=== PATIENT | female | born 1985 | race Caucasian/White ===

== ENCOUNTER 2019-02-15 16:46 | Outpatient (REF) | payer SELFPAY ==
--- NOTE | 2019-02-15 15:30 | PAPFT_PTH ---
PATIENT: Terri Merritt LOC: [facility] U#:[id number] AGE/SX: 33/F ROOM: RE02/15/[address]: Patricia Giles : 1985 BED: DIS: 02/15/2019 SPEC #: [id number] RECD: 02/16/19 12:44 STATUS: YASMINE REColton #: [id number] LEE: 02/15/19 15:[address]: Patricia Giles DEPT: [facility] Cytology RECD BY: Mireille Carver ENTERED: 02/16/19 12:45 SP TYPE: PAPFT OTHR DR: Lyle Guerrero Tissues: 1 - CX/ENDOCX FOR PAP SMEARS Procedures: PAP THIN PREP/UVM Screening HPV DNA PROBE Comments: [id number]
== END 2019-02-15 17:06 ==
LOC: NCHCN 16:46
PROVIDERS: PCP Internal Medicine; Visit Provider Nurse Practitioner Family
DX: Z12.4 Encounter for screening for malignant neoplasm of cervix (principal); Z01.419 Encounter for gynecological examination (general) (routine) without abnormal findings
CPT/HCPCS: 88142; 87624

== ENCOUNTER 2020-01-19 01:53 | Outpatient (CLI) | payer OTHER, SELFPAY ==
--- NOTE | 2020-01-19 | DI.RAD_ITS ---
EXAM: XR SHOULDER RT COMPLETE 2+V CLINICAL HISTORY: TENDINITIS RT SHOULDER, M75.81. TECHNIQUE: 2D digital imaging was performed. COMPARISON: No exams were available for comparison FINDINGS: BONES: No acute fracture is present. No bony destructive lesion is seen. JOINTS: No dislocation present. SOFT TISSUE: Normal. IMPRESSION: Unremarkable radiographs of the insert body part. DATA REPOSITORY: RADIATION DOSE DELIVERED:
== END 2020-01-19 02:13 ==
PROVIDERS: PCP Internal Medicine; Visit Provider Nurse Practitioner Family
DX: M75.81 Other shoulder lesions, right shoulder (principal)
CPT/HCPCS: 73030

== ENCOUNTER 2020-04-11 02:33 | Outpatient (CLI) | payer OTHER, SELFPAY ==
[2020-04-12 12:45] LABS: COVID-19 RT-PCR UVMMC Result Negative (Negative)
== END 2020-04-11 02:34 | disposition home or self-care (01) ==
LOC: LBO 02:33
PROVIDERS: PCP Nurse Practitioner Family; Visit Provider Student in an Organized Health Care Education/Training Program
DX: Z11.52 Encounter for screening for COVID-19 (principal); Z01.818 Encounter for other preprocedural examination
CPT/HCPCS: U0003

== ENCOUNTER 2020-04-14 06:05 | Day surgery (SDC) | payer OTHER, SELFPAY ==
[2020-04-14] VITALS (7 sets, daily range): BP systolic 89–99; BP diastolic 43–60; PULSE 71–108; RESP 16–20; TEMP 36.1–36.6; O2SAT 97–100
[2020-04-14] MEDS: Lactated Ringers 1,000 ML 100 ML IV (06:57)
--- NOTE | 2020-04-14 07:12 | W.PM.DSUDISC ---
Discharge Plan Disposition Patient Disposition: HOME Condition: Stable Discharge Details Reason For Visit: Right shoulder surgery Attending Provider: Jaylon Porter Primary Care Provider: Patricia Giles Home Meds and New Rx's Prescriptions: New naproxen 250 mg tablet 250 - 500 mg PO BID PRN (Reason: Moderate pain or swelling) Qty: 60 RF: 0 aspirin 81 mg tablet,delayed release (DR/EC) 81 mg PO DAILY 14 Days Qty: 14 RF: 0 oxycodone 5 mg tablet 5 - 10 mg PO Q4H PRN (Reason: moderate to severe pain) Qty: 16 RF: 0 Continued lorazepam 1 MG tablet 0.5 mg PO TID PRN PRN (Reason: Anxiety) RF: 0 diphenhydramine-acetaminophen [Tylenol PM Extra Strength] 25-500 mg Tablet 1 tab PO QHS PRNRF: 0 Discontinued metronidazole [Metrogel Vaginal] 70 GM gel 70 gm VG BID Qty: 1 RF: 0 ibuprofen 200 mg Tablet 200 mg PO Q6H PRNRF: 0 Discharge Instructions Additional Instructions: Surgery: Shoulder arthroscopy with extensive debridement, subacromial decompression, and mini open biceps tenodesis Activity: You should gradually increase range of motion motion and use of your shoulder. Please perform daily stretching exercises. You may use your shoulder for all regular activities. Avoid heavy lifting, reaching overhead, and lifting away from body for approximately 6 to 8 weeks. You may use the sling whenever you are out of the house for a few weeks. At home it is best to remove the sling and rest the arm on a pillow at your side or support the operative side with your other hand. You may allow the arm to dangle at your side. A physical therapy prescription will be sent electronically to start in 1-2 weeks. Avoid biceps strengthening for 1 month and no eccentric strengthening for 2 months. Prescriptions: Aspirin 81 mg take 1 daily to prevent a blood clot for 2 weeks Naproxen 250 mg take 1-2 every 12 hours with a meal as needed for moderate pain Oxycodone 5 mg take 1-2 every 4-6 hours as needed for severe pain You may use dhgk-kmo-szdxjhz Tylenol (acetaminophen) as needed for mild pain. These pain medications may be taken all at once or in different combinations as needed. Also, recommend Colace (docusate) as a stool softener as surgery and pain medicine cause constipation. Dressings: Remove shoulder bandage after 3 days. Leave the sticky Steri-Strips in place until they fall off or remove them after you shower. Cover the incisions with Band-Aids or leave them open to air. The biceps bandage (inside upper arm) is glued on separately. You may leave this one on a few days longer if it is difficult to remove. There is also glue underneath this bandage that can be left in place until it peels off. You may shower after 5 days. Follow-up: 10-[address] Porter (9:30 AM on 04/26) You may take off the leg compression stockings this evening at home. You may also leave them on a few days longer if you have a history of leg swelling or edema. Let us know right away if you develop any redness, drainage, fevers, chest pain, or trouble breathing. Do not drink alcohol or drive for at least 24 hours after anesthesia. Please call the office during business hours with any questions or concerns. Referrals: Jaylon Porter MD [ [facility] STAFF PHYSICIAN] - Discharge Orders Discharge Orders: Discharge Order (Routine); Ordered 04/14/20 Ordered By: Jaylon Porter DS: Diagnosis Discharge Diagnosis (1) Bursitis of right shoulder: Status: Acute (2) Superior labrum urwkklqm-bu-vgsjjtbjw (SLAP) tear of right shoulder: Status: Suspected (3) Biceps tendinitis of right shoulder: Status: Acute
[2020-04-14] MEDS: ceFAZolin 2 GM/50 ML BAG IVPB (07:36)
[2020-04-14] MEDS: EPINEPHrine 30 MG/30 ML VIAL (09:25)
[2020-04-14] MEDS: Bupivacaine 0.25% Pres-Free 30 ML VIAL (09:25)
--- NOTE | 2020-04-14 10:18 | W.PM.OP ---
Date of service: 04/14/20 Time of Service: 08:00 Operative Note Operative Note DATE OF PROCEDURE: 04/14/20 PRE-OP DIAGNOSIS: Right: 1. SLAP tear 2. LHB tendinopathy 3. Bursitis POST-OP DIAGNOSIS: same PROCEDURE: Right: 1. Open biceps tenodesis, CPT# 03565. This involved reattaching the long head of the biceps tendon to the proximal humerus in the sub-pectoral area of the bicipital groove at the correct tension. 2. Extensive debridement, CPT# 89404. This involved using arthroscopic hand instruments, power instruments, and radiofrequency instruments to release to release the long head of the biceps tendon and debride areas of labral tearing, rotator cuff fraying, synovitis, and chondromalacia about the biceps groove within the glenohumeral joint anteriorly, superiorly and posteriorly. 3. Subacromial decompression with partial acromioplasty, CPT# 02687. This involved using arthroscopic power instruments and a radiofrequency wand to complete a bursectomy and remove bone spurs on the undersurface of the acromion. The assistant editor was medically required in order to help assist in techniques above, which require positioning the arm, holding the arthroscope, and manipulating multiple instruments and sutures at the same time. This cannot be done without the help of an experienced assistant editor. SURGEON: Jaylon Porter SWIMMING POOL PLASTERER HELPER: Chris Dorsey ANESTHESIA: GETA, regional and local ESTIMATED BLOOD LOSS: 5 PATHOLOGY: none sent TOURNIQUET TIME: 0 COMPLICATIONS: None Patient was transported to: PACU Patient's condition: stable Implants: Arthrex: FiberTak 2.6 mm all-suture Button Implant Indications: The patient was diagnosed with the above conditions and appropriately indicated for surgical intervention. Please see complete medical record for details. Findings: Exam under anesthesia: Full, symmetrical range of motion without instability Glenohumeral joint: Type II SLAP tear involving the biceps anchor with moderate adjacent synovitis. No propagation of labral tear anteriorly or posteriorly inferiorly. 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 Moderate anterior synovitis and chondromalacia about the bicipital groove. Significant long head of the biceps tendon injection intra-articularly and traveling down the bicipital groove. Mild subscapularis superior margin fraying. Intact articular sided supraspinatus and infraspinatus rotator cuff. Intact articular cartilage. Subacromial space: Moderate bursitis and mild undersurface acromial bone spurring. Intact bursal rotator cuff. Procedure Description: In the operating room, general anesthesia was induced. Bilateral shoulders were examined. The patient was positioned in the beachchair position. All bony prominences were well-padded. Preoperative antibiotics were administered. The shoulder was prepped and draped in the usual sterile fashion. The correct patient, procedure, and side of the procedure were all verified prior to incision. Starting through the posterior portal a standard complete diagnostic arthroscopy was performed of the glenohumeral joint including inspection of the long head of the biceps, anterior and superior labrum, subscapularis tendon, supraspinatus and infraspinatus tendons, and axillary recess. The glenoid and humeral head cartilage as well as the posterior labrum were inspected from an anterior viewing portal. Significant findings and interventions noted above. The biceps tendon was released from the superior labrum using arthroscopic scissors. The glenohumeral joint was drained of arthroscopic fluid. Starting through the posterior portal, the arthroscope was directed into the subacromial space. A lateral 50 yard line lateral portal was created. A combination of power instruments and a radiofrequency ablator were used to debride bursitis anteriorly, posteriorly, and laterally as well as expose and smooth bone spurring on the undersurface of the acromion. The coracoacromial ligament was preserved. The bursectomy was completed viewing laterally and working from posteriorly and the rotator cuff was thoroughly inspected with findings noted above. The subacromial space was drained of arthroscopic fluid. 20 cc of 0.25% bupivacaine with epinephrine was infiltrated about a 2 to 3 cm longitudinal incision at the inferior margin of the pectoralis major localized over the long head of the biceps tendon. Blunt and sharp dissection were used to expose the tendon in the bicipital groove. The tendon was brought out of the wound and kept off the skin on top of lap. Using a fiber loop suture the tendon was prepped from the musculotendinous junction a few centimeters proximal. The excess tendon was amputated. The correct location for sub-pectoral fixation was localized, prepped with a rasp, and then drilled with a 2.6 mm drill pin in a unicortical fashion through the guide. The FiberTak button implant was inserted through the guide, deployed, and tested. The free FiberLoop suture ends were then passed through the implant using the preloaded FiberLoop shuttling sutures. The sutures were tensioned bringing the tendon down to bone. Tension and fixation were then tested and found to be appropriate. A free needle was used to pass suture through the tendon and the free ends of the suture were were tied compressing tendon to bone. The wound was copiously irrigated with normal saline. Subcutaneous tissue was closed using 3-0 Monocryl in a buried interrupted fashion. Skin was closed using 3-0 Monocryl in a buried subcuticular running fashion. Skin glue was applied over the incision. Mastisol was applied about the incision. The incision was covered with Telfa, gauze, and covered with a Tegaderm dressing. The shoulder was drained of arthroscopic fluid. All portal sites were copiously irrigated. These incisions were closed using 3-0 Monocryl in a buried fashion, covered with Mastisol, Steri-Strips, Xeroform, dry gauze, and ABDs. The dressings were covered and secured with Medipore tape. The operative extremity was placed into a sling for immobilization. The patient awoke from anesthesia without complication and was transferred to the recovery room in a stable condition.
== END 2020-04-14 11:24 | disposition home or self-care (01) ==
PROVIDERS: PCP Nurse Practitioner Family; Visit Provider Student in an Organized Health Care Education/Training Program
PROC: (CPT 29805; principal; 2020-04-14 07:30)
DX: S43.431A Superior glenoid labrum lesion of right shoulder, initial encounter (principal); M75.51 Bursitis of right shoulder; M75.21 Bicipital tendinitis, right shoulder; X58.XXXA Exposure to other specified factors, initial encounter; M65.811 Other synovitis and tenosynovitis, right shoulder; M94.211 Chondromalacia, right shoulder
CPT/HCPCS: 23430; 29823; 29826; 76942; 81025; J0131; J0690; J1100; J1885; J2001; J2250; J2405

== ENCOUNTER 2023-06-10 15:56 | Outpatient (REF) | payer BC, SELFPAY ==
[2023-06-10 18:44] LABS: HCT 42.9 % (36.0-46.0); HGB 14.7 g/dL (11.2-15.7); MCH 30.1 pg (27.0-33.0); MCHC 34.3 % (32.0-36.0); MCV 88 fL (80-95); MPV 9.8 fL (8.0-11.0); Platelet Count 289 10^3/uL (130-400); RBC 4.88 10^6/uL (3.93-5.22); RDW 13.2 % (11.7-14.6); RDW-SD 42.7 fL
[2023-06-10 19:07] LABS: ALT 33 U/L (14-59); AST 18 U/L (15-37); Albumin 3.8 g/dL (3.4-5.0); Alkaline Phosphatase 49 U/L (46-116); Anion Gap 9.3 mmol/L (3-11); BUN 18 mg/dL (7-18); Bilirubin, Total 0.2 mg/dL (0.2-1.0); CO2 28.7 mmol/L (21.0-32.0); CREATININE 0.8 mg/dL (0.55-1.02); Calcium 8.7 mg/dL (8.5-10.1); Chloride 105 mmol/L (98-107); Estimated GFR 97.87 (mL/min/1.73m2); Glucose 90 mg/dL (74-106); Sodium 143 mmol/L (136-145); TSH (W/Ref FT4) 1.09 uIU/mL (0.36-3.74); Total Protein 6.9 g/dL (6.4-8.2)
[2023-06-10 19:19] LABS: Vitamin D 25 Total 29.9 ng/mL (30-100)
== END 2023-06-10 15:57 | disposition home or self-care (01) ==
LOC: NCHCN 15:56
PROVIDERS: PCP Nurse Practitioner Family; Visit Provider Physician Assistant
DX: F41.8 Other specified anxiety disorders (principal); E55.9 Vitamin D deficiency, unspecified
CPT/HCPCS: 80053; 82306; 85027; 84443

== ENCOUNTER 2024-03-05 17:11 | Outpatient (REF) | payer BC, SELFPAY ==
--- OUTSIDE RECORDS SUMMARY | 2024-03-05 17:13 | XMS_ITS | Encounter Summary ---
Author Organization [facility] Address [address] [place] [address] Care Team Providers Care Basket Hand Braider Name Role Phone Unknown, Provider Primary Care Provider Unava ilable Encounter Details Date Type Department Care Team (Late st Contact Info) Description 06/22/2012 Results Only [facility] - [facility] ([facility] [address] [place] [address] [phone] Barby Flood, JUANITA Social History Tobacco Use Types Packs/Day Years Used Date Smoking Tobacco: Never Assessed Comments Unknown Sex and Gender Information Value Date Recorded Sex Assigned at Not on file Legal Sex Female 18:37 EST Gender Identity Not on file Sexual Orientation Not on file documented as of this encounter Plan of Treatment Not on file documented as of this encounter Procedures Procedure Name Priority Date/Time Associated Diagnosis Comments PAP TEST- RESULT ONLY Routine 06/22/2012 0:00 EDT documented in this encounter Results * PAP TEST- RESULT ONLY (06/22/2012 0:00 EDT) Pathology Report: CYTOPATHOLOGY REPORT Reports generated via electronic interface contain original data; however they are lacking the format of the original report. Caution should be taken when reading/interpreti ng unformatted reports. Name: ? MARILEE FERRARO ? Accession #: ? [id number] : ? 1985 (Age: 27) ??F ?Collect Date: ? 06/22/2012 Location: ? [facility] ? Receive Date: ? 06/23/2012 Provider: ?BARBY FLOOD ASSISTANT MEDIA PLANNER Copy to: ?MARCUS BAUER ? Specimen/Source: ?Pap Test, Cervix/Endocervix, ThinPrep Imaging System with manual evaluation Last Menstrual Period: ? Hormonal/Contracep tive Status: ? Intrauterine device: mirena Previous Gynecologic Pathology: ? EDMOND I+II: Phx ? , paps normal since Infection History: ? Bacterial vaginosis ? SPECIMEN ADEQUACY ? Satisfactory for Evaluation - transformation zone component present - scant squamous epithelial component secondary to excessive inflammation GENERAL CATEGORIZATION ? Negative for Intraepithelial Lesion or Malignancy INTERPRETATION ? Reactive cellular changes associated with inflammation present (includes repair). Shift in susan present suggestive of bacterial vaginosis. ? Document reviewed and electronically signed by: ? CHELY PANCHAL MD ? Report Date: ??06/26/2012 11:54 End of Report [facility] 06/22/2012 06/23/2012 us Barby Flodo NP PATHOLOGY ORDERABLES Final Re sult [facility] [address] [place] [address] documented in this encounter Visit Diagnoses Not on filedocumented in this encounter Care Teams Basket Hand Braider Relationship Specialty Start Date End Date Unknown, Provider, PCP - General 05/01/10 documented as of this encounter
--- OUTSIDE RECORDS SUMMARY | 2024-03-05 17:13 | XMS_ITS | Encounter Summary ---
Author Organization [facility] Address [address] [place] [address] Care Team Providers Care Market Investigator Name Role Phone Unknown, Provider Primary Care Provider Unava ilable Encounter Details Date Type Department Care Team (Late st Contact Info) Description 04/11/2020 Lab Requisition [facility] Pathology & Laboratory Medicine - [facility] [address] [place] [address] Outr Resulting Lab, Provider Social History Tobacco Use Types Packs/Day Years Used Date Smoking Tobacco: Never Assessed Interpersonal Safety Answer Date Record ed Physically Hurt Never 10/10/2019 Verbally Threaten Not on file 10/10/2019 Comments Unknown Sex and Gender Information Value Date Recorded Sex Assigned at Not on file Legal Sex Female 18:37 EST Gender Identity Not on file Sexual Orientation Not on file documented as of this encounter Plan of Treatment Not on file documented as of this encounter Procedures Procedure Name Priority Date/Time Associated Diagnosis Comments ZZCOVID-19 TEST [facility] PCR Today 04/11/2020 11:10 EST COVID-19 TESTING Routine 04/11/2020 11:1 0 EST documented in this encounter Results * COVID-19 TEST [facility] PCR (04/11/2020 11:10 EST) Swab ENTIRE NASOPHARYNX / Unknown 04/11/2020 11:10 EST 04/11/2020 15:44 EST us Provider Outr Resulting Lab MICROBIOLOGY - GENER AL ORDERABLES Final Result [facility] [address] [place] [address] * COVID-19 TESTING (04/11/2020 11:10 EST) COVID-19 rt-PCR Result Negative Negative 04/12/2020 12:38 EST [facility] Comment: This test has not been FDA cleared or approved. This test has been authorized by FDA under an EUA for use by authorized laboratories. This test has been authorized only for detection of nucleic acid from 2019-nCoV, not for any other viruses or pathogens. This test is only authorized for the duration of the declaration that circumstances exist justifying the authorization of emergency use of in vitro diagnostic tests for detection and/or diagnosis of 2019-nCoV under section 564(b)(1) of Act, 21 U.S.C ?? 360bbb-3(b) (1), unless the authorization is terminated or revoked sooner. Negative results do not preclude 2019-nCoV infection and should not be used as the sole basis for treatment or other patient management decisions. Negative results must be combined with clinical observations, patient history, and epidemiological information. Testing was performed using the clarence SARS-CoV-2 assay ([employer] on the Clarence [address]00 System Performing Lab [facility] [address] [facility] Lab 04/12/2020 12:38 EST [facility] Swab 04/11/2020 11:1 0 EST 04/11/2020 15:44 EST us Provider Outr Resulting Lab MICROBIOLOGY - GENER AL ORDERABLES Final Result [facility] [address] [place] [address] documented in this encounter Visit Diagnoses Not on filedocumented in this encounter Care Teams Market Investigator Relationship Specialty Start Date End Date Unknown, Provider, PCP - General 05/01/10 documented as of this encounter
--- OUTSIDE RECORDS SUMMARY | 2024-03-05 17:13 | XMS_ITS | Encounter Summary ---
Author Organization [facility] [place] [address] Care Team Providers Care Dynamometer Mechanic Name Role Phone Susie Chaevz SLUBBER MACHINE OPERATOR Primary Care Provider [phone] Encounter Details Date Type Department Care Team (Late st Contact Info) Description 04/30/2016 Telephone Obstetrics and Gynecology at [facility] [place] [id number] Jamal Olson MD Social History Tobacco Use Types Packs/Day Years Used Date Smoking Tobacco: Former Cigarettes Q uit: 04/10/2016 Smokeless Tobacco: Never Sex and Gender Information Value Date Recorded Sex Assigned at Not on file Gender Identity Not on file Sexual Orientation Not on file documented as of this encounter Miscellaneous Notes * Telephone Encounter - Denice Black - 05/03/2016 8:43 AM EST LEFT pt message, ok to cancel preop scheduled as Dr. Olson will do it the morning of. * Telephone Encounter - Denice Black - 05/02/2016 8:09 AM EST Patient is scheduled for surgery with Dr. Olson for 05/28. Will send patient surgery packet * Telephone Encounter - Denice Black - 05/02/2016 7:33 AM EST Pt returned my call; I called patient and left another voicemail * Telephone Encounter - Denice Black - 04/30/2016 4:16 PM EST Terri returned my call 04/30/16 regarding setting up surgery. I left her a voicemail with potential dates of 05/28 or 06/04. Will await her call to schedule. documented in this encounter Plan of Treatment Not on file documented as of this encounter Visit Diagnoses Not on filedocumented in this encounter Care Teams Dynamometer Mechanic Relationship Specialty Start Date End Date Susie Chavez, SOPHIA PCP - General Family Medicine 04/03/16 documented as of this encounter
--- OUTSIDE RECORDS SUMMARY | 2024-03-05 17:13 | XMS_ITS | Encounter Summary ---
Author Organization [facility] Address [facility] [place] [address] Care Team Providers Care Whey Department Operator Name Role Phone Susie Chavez APRN Primary Care Provider [phone] Encounter Details Date Type Department Care Team (Latest Contact Info) Description 03/09/2020 12:55 PM EST - 03/09/2020 11:59 PM EST Hospital Encounter XRay at [address] [place] [address] Jaylon Porter MD [address] [place] [address] Biceps tendinitis of right upper extremity; Superior glenoid labrum lesion of shoulder, unspecified laterality, sequela Discharge Disposition: Home Social History Tobacco Use Types Packs/Day Years Used Date Smoking Tobacco: Former Cigarettes Q uit: 04/10/2016 Smokeless Tobacco: Never Alcohol Use Standard Drinks/Week Comments Yes 0 (1 standard drink = 0.6 oz pur e alcohol) once every 2 weeks Sex and Gender Information Value Date Recorded Sex Assigned at Not on file Gender Identity Not on file Sexual Orientation Not on file documented as of this encounter Discharge Instructions * Patient Instructions* Mely Rodriguez - 03/09/2020 1:06 PM EST Post Injection Patient Instructions You received an injection by Dr. Capone in the diagnostic section of radiology. Procedure: Right Shoulder Arthrogram In the days following the injection: ??? Low intensity movement and exercise of the affected joint. ??? Avoid movements that worsen pain. During the first 48 hours following the injection you may experience mild discomfort at the injection site. If you experience pain or discomfort in the affected area, do the following: ??? Apply cold compress to the affected area. ??? If allowed by your physician, take an anti-inflammatory medication such as ibuprofen (example: Advil), Acetaminophen 9example: Tylenol) or Aspirin. IMPORTANT The risk of infection exists whenever the skin is punctured. The risk can be minimized by keeping the injection site clean. However, be aware of the following signs of an infection: ??? Redness and swelling at the injection site. ??? Increased pain. ??? Fever and/or chills. ??? Decreased range of motion in the joint near the injection site. If you experience any of the signs of infection listed above, telephone the diagnostic section of radiology at [phone]. documented in this encounter Medications at Time of Discharge Medication Sig Dispensed Refills Start Date End Date oxyCODONE (ROXICODONE) 5 mg Tablet Take 1 tablet by mouth every 4 hours as needed for Pain. 10 tablet 05/28/2016 ibuprofen (ADVIL;MOTRIN) 600 mg Tablet Take 1 tablet by mouth every 6 hours as needed for Pain. 60 tablet 05/28/2016 LORazepam (ATIVAN) 0.5 mg Tablet Take 0.5 mg by mouth every 6 hours as needed for Anxiety. documented as of this encounter Plan of Treatment Not on file documented as of this encounter Procedures Procedure Name Priority Date/Time Associated Diagnosis Comments XR FLUORO ARTHROGRAM INJECTION SHOULDER RIGHT Routine 03/09/2020 1:38 PM EST Biceps tendinitis of right upper extremity Superior glenoid labrum lesion of shoulder, unspecified laterality, sequela documented in this encounter Results * XR Fluoro Arthrogram Injection Shoulder Right (03/09/2020 1:38 PM EST) Anatomical Region Laterality Modality Shoulder Right Radio Fluoroscop y Impressions 03/09/2020 1:45 PM EST Uneventful arthrogram Resident/Fellow: None Attending: There was no attending present for this procedure Procedure performed by Ema Capone APRN Thank you for letting us participate in the care of this patient. For questions regarding this report, please contact the number below. ? Narrative 03/09/2020 1:45 PM EST HISTORY: ??BICEP TENDONITIS, SLAP TEAR, ORDER IN SCANNED DOCS, MR arthrogram of right shoulder joint space. Arthrogram For Injection Of Contrast TECHNIQUE: After an extensive conversation with the patient regarding risks and benefits, oral and written consent were obtained.? A pre- procedural time-out was performed, including review of the patient's relevant electronic medical record and allergies, as per [facility] [place]. The patient was positioned supine on the fluoroscopic table. ??The skin overlying the right anterior shoulder was prepped and draped in the usual aseptic manner. 1% Lidocaine was used to achieve local anesthesia. ??Under fluoroscopic guidance, a 22 gauge 3.5 inch spinal needle was advanced into the joint space. ??After confirmation of intra-articular location of needle tip by using a small injection of the contrast mixture, a total of 10 ml of the contrast mixture was injected. All needles removed at end of procedure. FINDINGS: 1. Contrast in right shoulder joint space 2. Additional post-contrast injection images were obtained in different projections. MEDICATIONS: Lidocaine 1% - <5 ml, for subcutaneous anesthesia CONTRAST: 20cc mixture of the following: Dotarem- 0.2 ml in Normal Saline - 10ml Omnipaque 300-Utilized: 5 mL 1% Lidocaine - 5ml Only 10 ml of this mixture injected into joint space. FLUORO TIME: 1.23 minutes COMPLICATIONS: ??None immediate. POST-PROCEDURE CARE: Instructions regarding monitor of infection and management of post-procedural pain were reviewed with the patient. Procedure Note Ema Capone APRN - 03/09/2020 HISTORY: BICEP TENDONITIS, SLAP TEAR, ORDER IN SCANNED DOCS, MRarthrogram of right shoulder joint space. Arthrogram For Injection Of Contrast TECHNIQUE: After an extensive conversation with the patient regarding risks andbenefits, oral and written consent were obtained.? A pre- procedural time-out was performed, including review of the patient's relevant electronic medicalrecord and allergies, as per [facility] [place]. The patient was positioned supine on the fluoroscopic table. The skinoverlying the right anterior shoulder was prepped and draped in the usual asepticmanner. 1% Lidocaine was used to achieve local anesthesia. Under fluoroscopicguidance, a 22 gauge 3.5 inch spinal needle was advanced into the joint space.After confirmation of intra-articular location of needle tip by using a small injection of the contrast mixture, a total of 10 ml of the contrastmixture was injected. All needles removed at end of procedure. FINDINGS: 1. Contrast in right shoulder joint space 2. Additional post-contrast injection images were obtained in different projections. MEDICATIONS: Lidocaine 1% - <5 ml, for subcutaneous anesthesia CONTRAST: 20cc mixture of the following: Dotarem- 0.2 ml in Normal Saline - 10ml Omnipaque 300-Utilized: 5 mL 1% Lidocaine - 5ml Only 10 ml of this mixture injected into joint space. FLUORO TIME: 1.23 minutes COMPLICATIONS: None immediate. POST-PROCEDURE CARE: Instructions regarding monitor of infection andmanagement of post-procedural pain were reviewed with the patient. IMPRESSION Uneventful arthrogram Resident/Fellow: None Attending: There was no attending present for this procedure Procedure performed by Ema Capone APRN Thank you for letting us participate in the care of this patient. Forquestions regarding this report, please contact the number below. Jaylon Porter MD IMG FLUORO ORDERABLE S documented in this encounter Visit Diagnoses Diagnosis Biceps tendinitis of right upper extremity Superior glenoid labrum lesion of shoulder, unspecified laterality, sequela documented in this encounter Administered Medications Inactive Administered Medications - up to 3 most recent administrations Medication Order MAR Action Action Date Dose Rate Site gadoterate meglumine (Dotarem) (0.5 mMol/mL) injection solution 0.2 mL/kg/dose 0.2 mL/kg/dose, Intra-articular, ONCE, 1 dose, On Aye 03/09/20 at 1345, Routine Given 03/09/2020 1:45 PM EST 0.2 mLs iohexoL (Omnipaque) (300 mg/mL) injection solution 10 mL 10 mL, Intra-articular, ONCE, 1 dose, On Aye 03/09/20 at 1345, Warning Vesicant/Irritant Medication , Routine Given 03/09/2020 1:20 PM EST 10 mLs lidocaine (Xylocaine) 1% (10 mg/mL) injection 200 mg 200 mg (20 mL), Subcutaneous, ONCE, 1 dose, On Aye 03/09/20 at 1345, Routine Given 03/09/2020 1:37 PM EST 10 mLs documented in this encounter Care Teams Whey Department Operator Relationship Specialty Start Date End Date Susie Chavez APRN PCP - General Family Medicine 04/03/16 documented as of this encounter
--- OUTSIDE RECORDS SUMMARY | 2024-03-05 17:13 | XMS_ITS | Encounter Summary ---
Author Organization [facility] [place] [address] Care Team Providers Care Accounts Payable Technician Name Role Phone Susie Chavez APRN Primary Care Provider [phone] Encounter Details Date Type Department Care Team (Late st Contact Info) Description 05/28/2016 11:18 AM EDT Anesthesia Event [place] [id number] Kiki Salas MD Anesthesia Record Procedure Summary Procedure Name Responsible Anesthesiologist Anesthesia Start Time Anesthesia Stop Time MARSUPIALIZATION,BA RTHOLIN'S GLAND CYST (WRVU 2.89) (Perineum) Kiki Salas MD 05/28/16 1118 05/28/16 1225 Events Date Time Event Comment 05/28/2016 0854 1118 AN Verify 1118 Start 1118 An Start Data 1127 An Induction 1129 An Intubation 1131 Anesthesia Ready 1219 Extubation/LMA Out 1221 an stop data 1223 Recovery or ICU Handoff Beth ent care was transferred to the destination unit staff after review of the patient's medical history, current anesthetic/surgical status and plan, according to the Provider Handoff Checklist. 1225 Stop Meds Name Total Midazolam 4 mg IV Lidocaine 60 mg Propofol 300 mg Ondansetron 8 mg Dexamethasone 8 mg ceFAZolin (ANCEF) 2g in dextrose 5% 100 mL 2 g Propofol INF 480 mg Ketorolac 15 mg lactated ringers infusion 1,000 mL 500 m L * Agents Name O2 Air N2O Sevoflurane (et) * Blood No blood administrations on file. Lines, Drains, and Airways Type Details Placement Removal Incision 05/28/16; perineum; 11/05/21 (LDA cleanup utility RA#[id number]); 1715 (LDA cleanup utility RA#[id number]) 05/28/16 0000 by Jocelyne Akhtar RN 11/05/21 1715 by Codie Diallo (RETIRED) Peripheral IV Line - Single Lumen 05/28/16; 0852; metacarpal vein (top of hand), right; [id number] catheter system; 18 gauge, 1 in length; Randall Herrera RN; distraction, intradermal injection, appears comfortable, tolerated well, age-appropriate response; 1 (left hand); catheter/device intact, no longer indicated, removed per policy/procedure; 05/28/16; 1353 05/28/16 0852 by Miracle Herrera RN 05/28/16 1353 by Ashli Hardy RN Supraglottic LMA Type: iGel; LMA Size: 4; Inserted by: JACKIE Park; Removal Date: 05/28/16; Removal Time: 1219 05/28/16 1129 by Delta Park CRNA 05/28/16 1219 by Delta Park CRNA documented in this encounter Social History Tobacco Use Types Packs/Day Years [...] on file documented as of this encounter OR Notes * Anesthesia Postprocedure Evaluation - Kiki Salas MD - 05/28/2016 1:33 PM EDT [facility] Department of Anesthesiology Post-procedure Note Patient: Terri Blanco Procedure Summary Date Anesthesia Start Anesthesia Stop Room / Location 05/28/16 1118 1225 [facility] OR 26 / [facility] MAIN OR Procedure Diagnosis Surgeon Responsible Provider MARSUPIALIZATION,BARTHOLIN'S GLAND CYST (WRVU 2.89) (N/A Perineum) (recurrent bartholin cyst) Jamal Olson MD Fillinger, Mary P, MD All Anesthesia Providers: Anesthesiologist: Kiki Salas MD FULL STACK NET DEVELOPER: Delta Park CRNA Last (1hr) Vitals: BP 99/70 (05/28/16 1300) Temp Pulse Resp 16 (05/28/16 1300) SpO2 97 % (05/28/16 1300) Patient Location: PACU/[facility] Level of Consciousness: Awake and Alert Pain Management: Satisfactory Analgesia PONV: None Cardiovascular Status: Hemodynamically Stable Respiratory Status: Room Air Postoperative Fluid Status: Intravascular EUvolemia Possible Anesthetic Complications: NONE apparent at time of evaluation Final Primary Anesthesia Type: General (The anesthetic type performed was the same as planned.) Comments: * Anesthesia Preprocedure Evaluation - Kiki Salas MD - 05/28/2016 8:38 AM EDT Pre-Anesthesia Evaluation for: Terri Blanco a 31 y.o. female. Procedure(s): MARSUPIALIZATION,BARTHOLIN'S GLAND CYST (WRVU 2.89) Patient Active Problem List Diagnosis ??? Cyst of left Bartholin's gland duct Lanced x 5 for abscess Past Medical History: Diagnosis Date ??? Abscess of Bartholin's gland ??? Anxiety ??? History of chlamydia Past Surgical History: Procedure Laterality Date ??? CYST INCISION AND DRAINAGE Left 2010 AND 2013 BARTHOLIN ??? KNEE ARTHROSCOPY Right Social History Substance Use Topics ??? Smoking status: Former Smoker Types: Cigarettes Quit date: 04/10/2016 ??? Smokeless tobacco: Never Used ??? Alcohol use Yes Comment: once every 2 weeks History Drug Use No No Known Allergies Medications: MAR and/or home medications have been reviewed. Physical Exam: Vitals: 05/28/16 0828 BP: 109/62 Pulse: 64 Resp: 16 Temp: 36.3 ??C (97.3 ??F) Body mass index is 31.12 kg/(m^2). Height: 165.1 cm (5' 5) Weight - Scale: 84.8 kg (187 lb) Airway Assessment: Mallampati: II TM distance: >3 FB Neck ROM: full Cardiovascular Assessment: Rhythm: regular Rate: normal Pulmonary Assessment: Dental Assessment: Comment: None loose. Misc Assessment: Anesthesia Plan: ASA 2 general, Former cigarette smoking 31 y/o female with hx anxiety on lorazepam presents with recurrent left bartholin cyst for marsupialization. Negative UPT. Denies CP, SOB. Good functional capacity. Denies cardiac, pulmonary, hepatic, renal disease. Denies GERD. Denies problems with anesthesia, self or family. Plan GA + LMA. Risks (including, but not limited to, awareness, nerve damage, damage to the major organs, ) benefits, alternatives discussed. Questions solicited and answered. Consent obtained. Region - Other Informed Consent: Anesthetic plan and risks discussed with patient. Plan discussed with FULL STACK NET DEVELOPER. [facility] Staff Note documented in this encounter Plan of Treatment Not on file documented as of this encounter Visit Diagnoses Not on filedocumented in this encounter Administered Medications Inactive Administered Medications - up to 3 most recent administrations Medication Order MAR Action Action Date Dose Rate Site ceFAZolin (ANCEF) 2g in dextrose 5% 100 mL 2 g, Intravenous, ONCE, 1 dose, On Fri05/28/16 at 0915, Administer over 30 Minutes, Give 30 minutes pre-op, Indication for (Active or Suspected): Prophylaxis Given 05/28/2016 11:32 AM EDT 2 g dexamethasone (DECADRON) injection PRN, Starting on Fri05/28/16 at 1134, Until Fri05/28/16 at 1230, Anesthesia Intra-op, Routine Given 05/28/2016 11:34 AM EDT 8 mg ketorolac (TORADOL) injection PRN, Starting on Fri05/28/16 at 1214, Until Fri05/28/16 at 1230, Pain, Anesthesia Intra-op, Routine Given 05/28/2016 12:14 PM EDT 15 mg lidocaine (PF) (XYLOCAINE) 100 mg/5 mL (2 %) injection PRN, Starting on Fri05/28/16 at 1126, Until Fri05/28/16 at 1230, Anesthesia Intra-op, Routine Given 05/28/2016 11:26 AM EDT 60 mg midazolam (PF) (VERSED) 1 mg/mL multi-dose injection PRN, Starting on Fri05/28/16 at 1118, Until Fri05/28/16 at 1230, Sleep, Anesthesia Intra-op, Routine Given 05/28/2016 11:20 AM EDT 1 mg Given 05/28/2016 11:18 AM EDT 3 mg ondansetron (ZOFRAN) injection PRN, Starting on Fri05/28/16 at 1158, Until Fri05/28/16 at 1230, Nausea, Anesthesia Intra-op, Routine Given 05/28/2016 11:58 AM EDT 8 mg propofol (DIPRIVAN) 10 mg/mL bolus injection (Anesthesia) PRN, Starting on Fri05/28/16 at 1127, Until Fri05/28/16 at 1230, Anesthesia Intra-op Given 05/28/2016 11:29 AM EDT 50 mg Given 05/28/2016 11:28 AM EDT 50 mg Given 05/28/2016 11:27 AM EDT 200 mg propofol (DIPRIVAN) infusion CONTINUOUS PRN, Starting on Fri05/28/16 at 1133, Until Fri05/28/16 at 1230, Anesthesia Intra-op, Routine New Bag 05/28/2016 11:33 AM EDT 150 mcg/kg/min 72 mL/hr documented in this encounter Care Teams Accounts Payable Technician Relationship Specialty Start Date End Date Susie Chavez, FRONT OFFICE SECRETARY PCP - General Family Medicine 04/03/16 documented as of this encounter
--- OUTSIDE RECORDS SUMMARY | 2024-03-05 17:13 | XMS_ITS | Encounter Summary ---
Author Organization [facility] [place] [address] Care Team Providers Care Medical Physics Researcher Name Role Phone Susie Chavez APRN Primary Care Provider [phone] Encounter Details Date Type Department Care Team (Late st Contact Info) Description 05/24/2016 Orders Only Obstetrics [place] [address] Nati Murphy MD [facility] DR OBSTETRICS & [place] [address] Social History Tobacco Use Types Packs/Day Years [...] on filedocumented in this encounter Care Teams Medical Physics Researcher Relationship Specialty Start Date End Date Susie Chavez APRN PCP - General Family Medicine 04/03/16 documented as of this encounter
--- OUTSIDE RECORDS SUMMARY | 2024-03-05 17:13 | XMS_ITS | Encounter Summary ---
Author Organization [facility] [place] [address] Care Team Providers Care Nuclear Medicine Supervisor Name Role Phone Susie Chavez ETHNOLOGY PROFESSOR Primary Care Provider [phone] Encounter Details Date Type Department Care Team (Late st Contact Info) Description 05/28/2016 9:58 AM EDT - 05/28/2016 11:24 AM EDT Surgery [place] [phone] Jamal Fischer MD MARSUPIALIZATION,BRYANT CHEPE'S GLAND CYST (WRVU 2.89) Social History Tobacco Use Types Packs/Day Years [...] on file documented as of this encounter Last Filed Vital Signs Vital Sign Reading Time Taken Comments Blood Pressure 109/62 05/28/2016 8:28 AM EDT Pulse 64 05/28/2016 8:28 AM EDT Temperature 36.3 ??C (97.3 ??F) 05/28/2016 8:28 AM ED T Respiratory Rate 16 05/28/2016 8:28 AM EDT Oxygen Saturation 99% 05/28/2016 8:28 AM EDT Inhaled Oxygen Concentration - - Weight 84.8 kg (187 lb) 05/28/2016 8:28 AM EDT Height 165.1 cm (5' 5) 05/28/2016 8:28 AM EDT Body Mass Index 31.12 05/28/2016 8:28 AM EDT documented in this encounter Discharge Instructions * Discharge Instructions* Ashli Hardy RN - 05/28/2016 1:14 PM EDT POST ANESTHESIA INSTRUCTIONS Go home, rest, use caution on stairs. Change positions slowly. Do not smoke if you are alone. Diet light to regular as tolerated today. If nausea occurs start with clear liquids and progress slowly. No driving, operating machinery, alcoholic beverages and no important decisions for 24 hours. Monitor IV site for signs and symptoms of infection: increasing redness, swelling, foul drainage, if occurs contact M.D. Patients who have had endotrachial tubes (this tube, used by anesthesia department, is passed down your throat after you are asleep, to ensure safe air passage during your operation). A sore throat is normal due to the tube. Cold liquids or soothing lozenges will help ease the discomfort. The generalized muscle aches are due to the medication given to you just before the tube is inserted. As the medication wears off, you may develop muscle soreness, which usually goes away in 12-24 hours. * Patient Instructions* Bianca Washington - 05/28/2016 11:13 AM EDT Images from the original note were not included. Vulvar Surgery Patient Instructions Follow-up Appointment: 06/03/2016 11:45 AM Nati Murphy MD [employer] 5l 06/19/2016 11:45 AM (Arrive by 11:30 AM) Jamal Fischer MD Obstetrics and Gynecology [facility] Activity Restrictions and Hygeine There is a small drain stitched into the cyst. That will come out at your appointment on Friday. Noproblem if it falls out early. You should take sitz baths twice per day. You can put a few inches of water in your tub and soak in that for about 10 minutes. Rinse with the ileana-bottle after using the bathroom. Comfort Measures Most patients prefer to wear loose-fitting clothing during the healing phase. Avoid tight, occlusive pants that may chafe. Pain Medications You can take ibuprofen 600 mg and tylenol 650 mg every 6 hours. You can take oxycodone 5 mg every 4 hours as needed for pain that breaks through the tylenol and ibuprofen. Do not take oxycodone and lorazepam together. When to Call It is normal to have a [id number] amount of discharge after vulvar surgery. This can range in color from yellow to blood tinged. What is NOT normal is heaving bleeding, or discharge with foulodor, especially if it is associated with increasing pain, redness, or fever. These symptoms shouldbe reported immediately. Contact Information Dr. Jamal Fischer Gynecology [place] [phone] documented in this encounter Medications at Time [...] for Anxiety. documented as of this encounter Progress Notes * Ashli Hardy RN - 05/28/2016 1:53 PM EDT Patient alert and oriented, vital signs stable. Reviewed discharge instructions; patient and boyfriend Quinton verbalized understanding. Copy of instruction sheet with contact numbers for questions/concerns with Quinton. Pain assessment documented. Patient escorted out of department via wheelchair with [facility] voluneer. documented in this encounter H&P Notes * Bianca Washington - 05/28/2016 10:50 AM EDT Gynecology H & P Problem List: There are no hospital problems to display for this patient. Active Non-Hospital Problems Diagnosis ??? Cyst of left Bartholin's gland duct Reason for Visit: Scheduled surgery ?? History of Present Illness: HPI Per Dr. Fischer's clinic H&P 04/24/2016 31 y.o. Female presents to [facility] with a 30 y.o. female here in preoperative consultation for treatment of her left Bartholin gland cyst that has been infected and recurred five times. She hasconsidered surgical options of marsupializaiton in the OR vs. Excision and she has decided to proceed with marsupialization. She is feeling well today. The only change in her medical history is that she started Lorazepam recently through her PCP for anxiety around this surgery. She takes 0.5 mg daily. Review of Systems: Review of Systems Denies fevers/chills, CP, SOB, N/V, LE pain Past Medical and Surgical History: Past Medical History: Diagnosis Date ??? Abscess of Bartholin's gland ??? Anxiety ??? History of chlamydia Past Surgical History: Procedure Laterality Date ??? CYST INCISION AND DRAINAGE Left 2010 AND 2013 BARTHOLIN ??? KNEE ARTHROSCOPY Right Past Obstetric History: Obstetric History T1 TAB0 SAB0 E0 M0 L1 Prior To Admission Medications: Prescriptions Prior to Admission Medication Sig Dispense Refill Last Dose ??? LORazepam (ATIVAN) 0.5 mg Tablet Take 0.5 mg by mouth every 6 hours as needed for Anxiety. 05/28/2016 at 0730 Allergies: No Known Allergies Family History: Family History Problem Relation Age of Onset ??? Heart Disease Maternal Grandfather ??? Colorectal Cancer Maternal Uncle Social History and Habits: Social History Social History ??? Marital status: Legal Separation Spouse name: N/A ??? Number of children: N/A ??? 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 Smoking status: Former Smoker Types: Cigarettes Quit date: 04/10/2016 ??? Smokeless tobacco: Never Used ??? Alcohol use Yes Comment: once every 2 weeks ??? Drug use: No ??? Sexual activity: Yes Partners: Male Other Topics Concern ??? Not on file Social History Narrative Immunizations: There is no immunization history on file for this patient. Physical Exam: Last Set of Vitals: Last value Range last 24 hrs Temperature Temp: 36.3 ??C (97.3 ??F) Temp: [36.3 ??C (97.3 ??F)] Heart Rate Heart Rate: 64 Heart Rate: [64] Blood Pressure BP: 109/62 BP: (109)/(62) Respiratory Rate Resp: 16 Resp: [16] SpO2 SpO2: 99 % SpO2: [99 %] Physical Exam General: Appears well Cardio: RRR Resp: CTAB Abd: obese, soft, non-tender LE: no edema, no tenderness. Laboratory (Last 24 Hours): Negative urine test today Assessment/Plan: Plan to proceed to the OR for bartholin gland marsupialization. 2 g Ancef ordered.Consent has been previously signed and was reviewed today. Bianca Washington MD 05/28/2016 Associated attestation - Jamal Fischer MD - 05/28/2016 2:49 PM EDT I saw and evaluated Terri Blanco. I agree with the findings and the plan of care as documented in the resident's note. JAMAL FISCHER MD documented in this encounter Miscellaneous Notes * Op Note - Nati Murphy - 05/28/2016 1:57 PM EDT [facility] Operative Note Patient Name: Terri Blanco : [id number] MR#: [id number] Case Date: 05/28/2016 Surgeon: Surgeon(s) and Role: * Jamal Fischer MD - Primary * Bianca Washington MD - Resident-Surgeon Junaid * Nati Murphy MD - Resident-Surgeon Chief Preoperative diagnosis: recurrent bartholin cyst Postoperative diagnosis: recurrent bartholin cyst Procedure(s) (LRB): Marsupialization of Bartholin's gland cyst Findings: 3 cm left-sided bartholin cyst with overlying scar tissue Anesthesia: General Estimated Blood Loss: 10 mL Fluids: 500mL Intraprocedure Crystalloid Total Drains: 1/4 inch selvin drain in Bartholin cyst cavity Specimens removed during surgery: none Surgical Closure: Other Than Primary Closure - superficial layers are left completely open during original surgery, deep layers completely closed Disposition: awakened from anesthesia, extubated and taken to the recovery room in a stable condition, having suffered no apparent untoward event. Condition: doing well without problems (Please see the Surgical Encounter Summary for any Implant and Specimen details pertinent to this patient.) HPI/Surgical Indications: ?? Terri Blanco is a 30 y.o. female with left Bartholin gland cyst that has been infected and recurred five times. She has considered surgical options of marsupializaiton in the OR vs. Excision and she has decided to proceed with marsupialization. Procedure Description: The patient was taken to the operating room where general anesthesia was obtained without difficulty. She was placed in the dorsal lithotomy position in yellowfin stirrups. SCD's were on and active. She was given 2g Ancef. Examination under anesthesia revealed a3 cm left-sided bartholin cyst with ov erlying scar tissue. The patient was prepped and draped in the usual sterile fashion. A timeout wasperformed with all members of the team in agreement. The planned incision site was infiltrated superficially with bupivacaine with epinephrine. A 1.5 cmvertical incision was made over the cyst just outside of the hymenal ring with a scalpel. Dissection was carried down to the cyst. In incision was extended with Metzenbaum scissors. Allis clamps wereused to help monica the cyst wall edges. The cyst was marsupialized with interrupted 3-0 vicryl stitches. The cyst was well irrigated. A 1/4 inch selvin drain was sutured into the cyst wall for security and tucked into the vagina. Bacitracin ointment was applied. The patient was returned to a supine position as anesthesia was discontinued. She was then extubated and taken to the PACU in stable condition, and accompanied by the anesthesiologist and surgeons. All counts were reported as correct. Infection Bundle used? N/A Dr. Fischer was present for the entire procedure NATI MURPHY MD 05/28/2016 Associated attestation - Jamal Fischer MD - 05/31/2016 2:22 PM EDT Attestation: Case Date: 05/28/2016 I was present and I participated during the entire procedure (does not need to include opening and closing). JAMAL FISCHER MD 05/31/2016 * Brief Op Note - Jamal Fischer MD - 05/28/2016 12:53 PM EDT Brief Operative Note Patient Name: Terri Blanco : [id number] MR#: [id number] Case Date: 05/28/2016 Surgeon: Surgeon(s) and Role: * Jamal Fischer MD - Primary * Bianca Washington MD - Resident-Surgeon Junaid * Nati Murphy MD - Resident-Surgeon Chief Preoperative diagnosis: recurrent bartholin cyst Postoperative diagnosis: recurrent bartholin cyst Procedure(s) (LRB): MARSUPIALIZATION,BARTHOLIN'S GLAND CYST (WRVU 2.89) (N/A) Anesthesia: General Findings: 3 cm left-sided bartholin cyst with overlying scar tissue Complications: none Fluids: 500mL Intraprocedure Crystalloid Total None Estimated Blood Loss: 10 mL Drains: 1/4 inch selvin drain in Bartholin cyst cavity Disposition: awakened from anesthesia, extubated and taken to the recovery room in a stable condition, having suffered no apparent untoward event. Condition: doing well without problems Infection Bundle used? N/A Attestation: Case Date: 05/28/2016 I was present and I participated during the entire procedure (does not need to include opening and closing). (Please see the Surgical Encounter Summary for any Implant and Specimen details pertinent to this patient.) documented in this encounter Plan of Treatment Not on file documented as of this encounter Procedures Procedure Name Priority Date/Time Associated Diagnosis Comments MARSUPIALIZATION,BA RTHOLIN'S GLAND CYST (WRVU 2.89) 05/28/2016 11:20 AM EDT recurrent bartholin cyst POCT URINE Routine 05/28/2016 documented in this encounter Results * POCT urine (05/28/2016) POC Urine HCG Negative Negative - Negative POC Control Internal Controls Acceptable 05/28/2016 Jamal Fischer MD POINT OF CARE TEST O RDERABLES documented in this encounter Visit Diagnoses Not on filedocumented in this encounter Administered Medications Inactive Administered Medications - up to 3 most recent administrations Medication Order MAR Action Action Date Dose Rate Site BUpivacaine (PF) (MARCAINE) 0.25 % (2.5 mg/mL) injection ONCE PRN, Starting on Fri05/28/16 at 1153, Until Fri05/28/16 at 1602, Intra-Operative (Intra-Procedure), Routine Given 05/28/2016 11:53 AM EDT 2 mLs lactated ringers infusion 1,000 mL 1,000 mL, at 100 mL/hr, Intravenous, CONTINUOUS, Starting on Fri05/28/16 at 0900, Until Fri05/28/16 at 1353, Day of Surgery (Day of Procedure) New Bag 05/28/2016 8:53 AM EDT 1,000 mLs 100 mL/hr documented in this encounter Active and Recently Administered Medications Times are shown in EDT. Scheduled Medication Order 05/26/2016 05/27/2016 05/28/2016 ceFAZolin (ANCEF) 2g in dextrose 5% 100 mL (COMPLETED) 2 g, Intravenous, ONCE, 1 dose, On Fri05/28/16 at 0915, Administer over 30 Minutes, Give 30 minutes pre-op, Indication for (Active or Suspected): Prophylaxis 1132 (Given - Provid er: [place] CRNA) sodium chloride 0.9 % flush 5 mL 5 mL, Intravenous, 2 TIMES DAILY, First dose on Fri05/28/16 at 1245, Until Discontinued, Routine 1245 (Due) Continuous Medication Order 05/26/2016 05/27/2016 05/28/2016 lactated ringers infusion 1,000 mL (CANCELED) 1,000 mL, at 100 mL/hr, Intravenous, CONTINUOUS, Starting on Fri05/28/16 at 0900, Until Fri05/28/16 at 1353, Day of Surgery (Day of Procedure) 0853 (New Bag - Prov ider: Miracle Herrera RN)1214 (Stopped - Provider: [place] CRNA) PRN Medication Order 05/26/2016 05/27/2016 05/28/2016 acetaminophen (TYLENOL) tablet 650 mg 650 mg, Oral, EVERY 6 HOURS PRN, Starting on Fri05/28/16 at 1219, Until Fri05/28/16 at 1602, Pain, Maximum dose of acetaminophen is 4000 mg from all sources in 24 hours., Routine BUpivacaine (PF) (MARCAINE) 0.25 % (2.5 mg/mL) injection (CANCELED) ONCE PRN, Starting on Fri05/28/16 at 1153, Until Fri05/28/16 at 1602, Intra-Operative (Intra-Procedure), Routine 1153 (Given - Provid er: Jamal Fischer MD) HYDROmorphone (DILAUDID) injection 0.2 mg 0.2 mg, Intravenous, ONCE PRN, 1 dose, Starting on Fri05/28/16 at 1217, Until Fri05/28/16 at 1602, Pain, severe or breakthrough pain, Routine lidocaine (XYLOCAINE) 10 mg/mL (1 %) injection 3 mg 3 mg (0.3 mL), Subcutaneous, ONCE PRN, 1 dose, Starting on Fri05/28/16 at 1216, Until Fri05/28/16 at 1602, for discomfort with PIV insertion, Routine oxyCODONE (ROXICODONE) immediate release tablet 5 mg 5 mg, Oral, EVERY 3 HOURS PRN, Starting on Fri05/28/16 at 1217, Until Fri05/28/16 at 1602, Pain, May repeat once within 30-60 minutes if pain unrelieved., Routine sodium chloride 0.9 % flush 5-20 mL 5-20 mL, Intravenous, EVERY 1 MIN PRN, Starting on Fri05/28/16 at 1216, Until Fri05/28/16 at 1602, flush, Flush pertains to all indwelling lines. Flush per protocol found in the job aid using the link provided on this medication record., Routine documented in this encounter Care Teams Nuclear Medicine Supervisor Relationship Specialty Start Date End Date Susie Chavez APRN PCP - General Family Medicine 04/03/16 documented as of this encounter
--- OUTSIDE RECORDS SUMMARY | 2024-03-05 17:13 | XMS_ITS | Encounter Summary ---
Author Organization [facility] [place] [address] Care Team Providers Care Air Pollution Inspector Name Role Phone Susie Chavez APRN Primary Care Provider Reason for Visit * Reason Onset Date Comments Post Procedure Call 05/30/2016 05/28/2016 Encounter Details Date Type Department Care Team (Late st Contact Info) Description 05/30/2016 Telephone Obstetrics [place] [phone] Florecita Jaquez Post Procedure Call (05/28/2016) Social History Tobacco Use Types Packs/Day Years [...] encounter Miscellaneous Notes * Telephone Encounter - Florecita Jaquez RN - 05/30/2016 12:31 PM EDT Surgery Date: 05/28/2016 Caller: Florecita Jaquez RN Reason for call: Post-op Surgery phone call. Procedure(s) (LRB): MARSUPIALIZATION,BARTHOLIN'S GLAND CYST (WRVU 2.89) (N/A) Speaking with: patient Condition of patient: I am doing ok Pain control: reports cramping sensation, feels like my period cramps Dressings to incision sites: none, using thin pad, changing every 2 hours related to patient comfort Tolerating solids/liquids: yes Had a BM or passing flatus: yes Voiding: yes Vaginal Bleeding: discharge from catheter, denies vaginal bleeding, denies odor to discharge Plan: Reviewed telephone contacts. Questions/concerns to call clinic at [phone]. documented in this encounter Plan of Treatment Not on file documented as of this encounter Visit Diagnoses Not on filedocumented in this encounter Care Teams Air Pollution Inspector Relationship Specialty Start Date End Date Susie Chavez APRN PCP - General Family Medicine 04/03/16 documented as of this encounter
--- OUTSIDE RECORDS SUMMARY | 2024-03-05 17:13 | XMS_ITS | Clinical Summary ---
Author Organization [facility] Address [address] [place] [address] Care Team Providers Care Position Clerk Name Role Phone Unknown, Provider Primary Care Provider Unava ilable Social History Tobacco Use Types Packs/Day Years Used Date Smoking Tobacco: Never Assessed Interpersonal Safety Answer Date Record ed Physically Hurt Never 10/10/2019 Verbally Threaten Not on file 10/10/2019 Comments Unknown Sex and Gender Information Value Date Recorded Sex Assigned at Not on file Legal Sex Female 18:37 EST Gender Identity Not on file Sexual Orientation Not on file Plan of Treatment Health Maintenance Due Date Last Done Comments Hepatitis C Screen 1987 Hepatitis B Vaccine (1 of 3 - 19+ 3-dose series) 05/07 COVID-19 Vaccine ( season) 2023 Care Teams Position Clerk Relationship Specialty Start Date End Date Unknown, Provider, PCP - General 05/01/10
--- OUTSIDE RECORDS SUMMARY | 2024-03-05 17:13 | XMS_ITS | Encounter Summary ---
[place] [address] Care Team Providers Care Activity Therapist Name Role Phone Susie Chavez APRN Primary Care Provider [phone] Reason for Referral * Diagnostic Test (Routine) - Closed Specialty Diagnoses / Procedures Referred By Katlyn marinelli Referred To Contact Radiology Diagnoses Biceps tendinitis of right upper extremity Superior glenoid labrum lesion of shoulder, unspecified laterality, sequela Procedures MRI Arthrogram Shoulder Right Jaylon Porter MD [address] [place] [address] [place] [address] Referral ID Status Reason Start Date Expiration Date V isits Requested Visits Authorized [id number] Closed Specialty Service Requested 02/25/2020 08/25/2021 1 1 Reason for Visit * Diagnostic Test (Routine) - Closed Specialty Diagnoses / Procedures Referred By Katlyn marinelli Referred To Contact Radiology Diagnoses Biceps tendinitis of right upper extremity Superior glenoid labrum lesion of shoulder, unspecified laterality, sequela Procedures MRI Arthrogram Shoulder Right Jaylon Porter MD [address] [place] [address] [place] [address] Referral ID Status Reason Start Date Expiration Date V isits Requested Visits Authorized [id number] Closed Specialty Service Requested 02/25/2020 08/25/2021 1 1 Encounter Details Date Type Department Care Team (Latest Contact Info) Description 03/09/2020 12:55 PM EST - 03/09/2020 11:59 PM EST Hospital [place] [address] Jaylon Porter MD [address] [place] [address] Biceps tendinitis of right upper extremity; Superior [...] on file documented as of this encounter Medications at Time of Discharge [...] Procedure Name Priority Date/Time Associated Diagnosis Comments MRI ARTHROGRAM SHOULDER RIGHT Routine 03/09/2020 2:40 PM EST Biceps tendinitis of right upper extremity Superior glenoid labrum lesion of shoulder, unspecified laterality, sequela documented in this encounter Results * MRI Arthrogram Shoulder Right (03/09/2020 2:40 PM EST) Anatomical Region Laterality Modality Shoulder Right Magnetic Resonan ce Impressions 03/09/2020 3:08 PM EST 1. Mild right supraspinatus and infraspinatus tendinosis. A small undersurface acromion hook is present with minimal edema in subacromial/subdeltoid bursa. 2. Nondisplaced right chondrolabral junction tear extending from biceps anchor to the posterior equator. Contrast intravasation in the intra-articular segment precludes specific evaluation for tendinosis. Thank you for letting us participate in the care of this patient. For questions regarding this report, please contact the number below. ? Electronically signed by: Trudi Delcid MD, [facility] ([phone]), at 03/09/2020 3:08 PM Narrative 03/09/2020 3:08 PM EST EXAMINATION: MRI ARTHROGRAM SHOULDER RIGHT CLINICAL HISTORY: Biceps tendinitis of right upper extremity; Superior glenoid labrum lesion of shoulder, unspecified laterality, sequela TECHNIQUE: Following the intra-articular administration of dilute gadolinium based contrast, MRI of the right shoulder is performed using axial oblique PD FS; coronal oblique T1 FS, T2 FS; sagittal oblique T1 FS and T1 sequences. COMPARISON: Fluoroscopic guided intra-articular contrast injection March 09, 2020 FINDINGS: Contrast adequately distends the glenohumeral joint without extravasation. Nongadolinium containing fluid, presumably local anesthetic, infiltrates the anterior deltoid. Rotator cuff: Supraspinatus: Mild signal heterogeneity at the critical zone with articular surface fraying. Infraspinatus: Small fraying of the insertional articular surface with normal tendon morphology. Teres minor: Intact Subscapularis: Intact Muscle: Normal bulk and signal Long head of biceps tendon: Small contrast intravasation of the intra-articular segment, otherwise normal position and morphology. Labrum: Nondisplaced chondrolabral junction tear extending from biceps anchor to the posterior equator. Remaining labrum and capsuloligamentous structures are intact. Rotator interval: Intact ligaments with preserved surrounding fat signal. Acromioclavicular joint: Minimal fibrous capsule hypertrophy without joint degeneration. The acromion has a small undersurface hook which abuts but does not impress upon supraspinatus musculotendinous junction. Minimal nongadolinium containing fluid signal in subacromial/subdeltoid bursa. Bone/cartilage: Bones are intact with normal marrow signal, noting several small subcortical cysts in posterior greater tuberosity. Glenohumeral cartilage is intact. No intra-articular body. Survey of lateral chest wall, axilla and neurovascular structures is normal. Procedure Note Trudi Delcid MD - 03/09/2020 EXAMINATION: MRI ARTHROGRAM SHOULDER RIGHT CLINICAL HISTORY: Biceps tendinitis of right upper extremity; Superiorglenoid labrum lesion of shoulder, unspecified laterality, sequela TECHNIQUE: Following the intra-articular administration of dilute gadolinium based contrast, MRI of the right shoulder is performed using axial oblique PDFS; coronal oblique T1 FS, T2 FS; sagittal oblique T1 FS and T1 sequences. COMPARISON: Fluoroscopic guided intra-articular contrast injection March 09, 2020 FINDINGS: Contrast adequately distends the glenohumeral joint withoutextravasation. Nongadolinium containing fluid, presumably local anesthetic, infiltratesthe anterior deltoid. Rotator cuff: Supraspinatus: Mild signal heterogeneity at the critical zone witharticular surface fraying. Infraspinatus: Small fraying of the insertional articular surface withnormal tendon morphology. Teres minor: Intact Subscapularis: Intact Muscle: Normal bulk and signal Long head of biceps tendon: Small contrast intravasation of theintra-articular segment, otherwise normal position and morphology. Labrum: Nondisplaced chondrolabral junction tear extending from bicepsanchor to the posterior equator. Remaining labrum and capsuloligamentous structuresare intact. Rotator interval: Intact ligaments with preserved surrounding fatsignal. Acromioclavicular joint: Minimal fibrous capsule hypertrophy withoutjoint degeneration. The acromion has a small undersurface hook which abuts butdoes not impress upon supraspinatus musculotendinous junction. Minimalnongadolinium containing fluid signal in subacromial/subdeltoid bursa. Bone/cartilage: Bones are intact with normal marrow signal, noting severalsmall subcortical cysts in posterior greater tuberosity. Glenohumeral cartilageis intact. No intra-articular body. Survey of lateral chest wall, axilla and neurovascular structures isnormal. IMPRESSION 1. Mild right supraspinatus and infraspinatus tendinosis. A smallundersurface acromion hook is present with minimal edema in subacromial/subdeltoidbursa. 2. Nondisplaced right chondrolabral junction tear extending from bicepsanchor to the posterior equator. Contrast intravasation in the intra-articularsegment precludes specific evaluation for tendinosis. Thank you for letting us participate in the care of this patient. Forquestions regarding this report, please contact the number below. Electronically signed by: Trudi Delcid MD, [facility]([phone]), at 03/09/2020 3:08 PM Jaylon Porter MD IMG MRI ORDERABLES documented in this encounter Visit Diagnoses Diagnosis Biceps tendinitis of right upper extremity Superior glenoid labrum lesion of shoulder, unspecified laterality, sequela documented in this encounter Care Teams Activity Therapist Relationship Specialty Start Date End Date Susie Chavez APRN PCP - General Family Medicine 04/03/16 documented as of this encounter
--- OUTSIDE RECORDS SUMMARY | 2024-03-05 17:13 | XMS_ITS | Encounter Summary ---
Author Organization [facility] Address [address] [place] [address] Care Team Providers Care Medical Physics Professor Name Role Phone Unknown, Provider Primary Care Provider Unava ilable Encounter Details Date Type Department Care Team (Late st Contact Info) Description 02/16/2019 Lab Requisition [facility] Pathology & Laboratory Medicine - [facility] [address] [place] [address] Patricia Giles, TEST DATA DEVELOPER [address] [place] [address] Encounter for screening for malignant neoplasm of cervix; Encounter for gynecological examination (general) (routine) without abnormal findings Social History Tobacco Use Types Packs/Day Years [...] Name Priority Date/Time Associated Diagnosis Comments PAP TEST Today 02/15/2019 15:30 EST Encounter for screening for malignant neoplasm of cervix Encounter for gynecological examination (general) (routine) without abnormal findings HPV DNA DETECTION WITH GENOTYPING, PCR Today 02/15/2019 15:30 EST Encounter for screening for malignant neoplasm of cervix Encounter for gynecological examination (general) (routine) without abnormal findings documented in this encounter Results * HUMAN PAPILLOMAVIRUS (HPV) DETECTION-HIGH RISK TYPES (02/15/2019 15:30 EST) HPV other High Risk types, PCR Negative Negative 02/22/2019 14:47 [facility] Comment:No E6 or E7 mRNA is detected from HPV types 16,18,31,33,35,39,45,51,52,56,58,59,66, and 68 by manager business intelligence mediated amplification. Papanicolaou smear specimen (specimen) CERVIX UTERI STRUCTURE / Unknown 02/15/2019 15:30 EST 02/19/2019 11:07 EST us Patricia Giles NP MICROBIOLOGY - GENERAL ORDERAB LES Final Result [facility] [address] [place] [address] * PAP TEST (02/15/2019 15:30 EST) Specimens A. Cervix and/or Endocervix, , ThinPrep Imaging System with Manual Evaluation 02/22/2019 14:47 [facility] Specimen Adequacy Satisfactory for Evaluation - transformation zone component present 02/22/2019 14:47 [facility] General Categorization Negative for intraepithelial lesion or malignancy 02/22/2019 14:47 [facility] Attestation . 02/22/2019 14:47 [facility] at 1447 Clinical History SEE ORDER COMMENTS 02/22/2019 14:47 [facility] HPV The result for the Human Papillomavirus (HPV) Detection-High Risk Types is Negative. No E6 or E7 mRNA is detected from HPV types 16,18,31,33,35,39 ,45,51,52,56,58,5 9,66, and 68 by manager business intelligence mediated amplification.Kaylee ting was performed on specimen [id number] and was resulted on 02/22/2019 1443 EST by МАРИЯ, LAB INSTRUMENT RESULTS IN 02/22/2019 14:47 [facility] Scanned Images 02/22/2019 14:47 [facility] Papanicolaou smear specimen (specimen) CERVIX UTERI STRUCTURE / Unknown 02/15/2019 15:30 EST 02/16/2019 15:43 EST us Patricia Giles NP PATHOLOGY ORDERABLES Final Res ult [facility] [address] [place] [id number] documented in this encounter Visit Diagnoses Diagnosis Encounter for screening for malignant neoplasm of cervix Screening for malignant neoplasm of the cervix Encounter for gynecological examination (general) (routine) without abnormal findings documented in this encounter Care Teams Medical Physics Professor Relationship Specialty Start Date End Date Unknown, Provider, PCP - General 05/01/10 documented as of this encounter
--- OUTSIDE RECORDS SUMMARY | 2024-03-05 17:13 | XMS_ITS | Encounter Summary ---
Author Organization [facility] [place] [address] Care Team Providers Care Dining Room Supervisor Name Role Phone Susie Chavez APRN Primary Care Provider [phone] Reason for Visit * Reason Onset Date Comments Questions 04/15/2016 Encounter Details Date Type Department Care Team (Late st Contact Info) Description 04/15/2016 Telephone Obstetrics and Gynecology at [facility] [place] [phone] Florecita Jaquez Questions Social History Tobacco Use Types Packs/Day Years Used Date Smoking Tobacco: Some Days Cigarettes Smokeless Tobacco: Never Sex and Gender Information Value Date Recorded Sex Assigned at Not on file Gender Identity Not on file Sexual Orientation Not on file documented as of this encounter Miscellaneous Notes * Telephone Encounter - Florecita Jaquez RN - 04/15/2016 8:57 AM EST TELEPHONE NOTE Caller: patient Reason for call: Questions Assessment: has decided on surgery for bartholin cyst Plan/Instructions: patient would like to see provider to discuss surgery for bartholin cyst prior to scheduling, appointment made for 04/24/16 at 0830 with MD Olson. Patient in agreement with plan. Will call clinic with further questions or concerns. documented in this encounter Plan of Treatment Not on file documented as of this encounter Visit Diagnoses Not on filedocumented in this encounter Care Teams Dining Room Supervisor Relationship Specialty Start Date End Date Susie Chavez APRN PCP - General Family Medicine 04/03/16 documented as of this encounter
--- OUTSIDE RECORDS SUMMARY | 2024-03-05 17:13 | XMS_ITS | Encounter Summary ---
Author Organization [facility] Address [address] [place] [address] Care Team Providers Care Drum Cleaner Name Role Phone Unknown, Provider Primary Care Provider Unava ilable Encounter Details Date Type Department Care Team (Late st Contact Info) Description 01/14/2017 Results Only [facility] [phone] Aurora Villarreal MD [address] [place] [address] [phone] Social History Tobacco Use Types Packs/Day Years [...] Procedure Name Priority Date/Time Associated Diagnosis Comments SURGICAL PATHOLOGY Routine 01/14/2017 12 :32 EST documented in this encounter Results * SURGICAL PATHOLOGY (01/14/2017 12:32 EST) Pathology Report: SURGICAL PATHOLOGY REPORT Reports generated via electronic interface contain original data; however they are lacking the format of the original report. Caution should be taken when reading/interpret ing unformatted reports. Name: ? MARILEE GUDINO ? Accession #: ? [id number] ? : ? 1985 (Age: 31) ??F ? Collect Date: ? 01/14/2017 ? Location: ? [facility] ? Receive Date: ? 01/15/2017 ? Provider: AURORA VILLARREAL MD Copy to: ? Final Pathologic Diagnosis: FALLOPIAN TUBES, BILATERAL SALPINGECTOMY: - Two fallopian tubes with benign paratubal cysts. ? - Full cross sections visualized x 2. - Portion of unremarkable ovary. Document reviewed and electronically signed by: RENNY BALDERRAMA MD Report ??Date: 01/16/2017 13:18 By the signature above, the attending physician certifies that he/she has personally conducted a gross and/or microscopic examination of the described specimens and rendered or confirmed the above diagnosis. Specimen(s) Received: Bilateral fallopian tubes Clinical History: Desires surgical sterilization Gross Description: ? Received in formalin labelled with proper patient identification (initials M, F) and bilateral fallopian tubes are bilateral fimbriated fallopian tubes (6.37 cm in length x 0.5 cm in diameter and 5.4 cm in length x 0.5 cm diameter). The serosal surfaces are swenson-purple and hyperemic each with peritubal cysts ranging from 0.2-0.3 cm in greatest dimension. On the fimbriated end of the larger tube is a portion of yellow adipose tissue (1.5 x 0.7 x 0.5 cm). The cut surfaces show an unremarkable pinpoint lumen. Rv Detailer sections are submitted as follows: BLOCK ZAMBRANO 1- ??larger fimbria, bisected with portion of adipose tissue and two cross sections with cyst 2- ??smaller fimbria, bisected and two cross sections with cyst LIZETTE Guadalupe (ASCP) 01/15/2017 1:45 PM End of Report [facility] 01/14/2017 12:3 2 EST 01/15/2017 12:32 EST us Aurora Villarreal MD PATHOLOGY ORDERABLES F inal Result [facility] [address] [place] [address] documented in this encounter Visit Diagnoses Not on filedocumented in this encounter Care Teams Drum Cleaner Relationship Specialty Start Date End Date Unknown, Provider, PCP - General 05/01/10 documented as of this encounter
--- OUTSIDE RECORDS SUMMARY | 2024-03-05 17:13 | XMS_ITS | Encounter Summary ---
Author Organization [facility] Address [address] [place] [address] Care Team Providers Care State Federal Relations Deputy Director Name Role Phone Unknown, Provider Primary Care Provider Unava ilable Encounter Details Date Type Department Care Team (Latest Contact Info) Description 01/14/2017 15:07 EST - 01/14/2017 23:59 EST Hospital Encounter [address] [address] Unknown, Provider, Discharge Disposition: Home or Self Care Social History Tobacco Use Types Packs/Day Years Used Date Smoking Tobacco: Never Assessed Comments Unknown Sex and Gender Information Value Date Recorded Sex Assigned at Not on file Legal Sex Female 18:37 EST Gender Identity Not on file Sexual Orientation Not on file documented as of this encounter Discharge Disposition Disposition Code Departure Means Destination Home or Self Nursing Home documented in this encounter Plan of Treatment Not on file documented as of this encounter Visit Diagnoses Not on filedocumented in this encounter Care Teams State Federal Relations Deputy Director Relationship Specialty Start Date End Date Unknown, Provider, PCP - General 05/01/10 documented as of this encounter
--- OUTSIDE RECORDS SUMMARY | 2024-03-05 17:13 | XMS_ITS | Encounter Summary ---
[place] [address] Care Team Providers Care Sprayer Leather Name Role Phone Susie Chavez APRN Primary Care Provider [phone] Reason for Visit * Reason Comments Establish Care Cyst bartholin abscess-re current * Consultation (Routine) - Closed Specialty Diagnoses / Procedures Referred By Contac t Referred To Contact Obstetrics and Gynecology Diagnoses RECURREN BARTHOLINS ABSCESS Procedures CONSULT Lyle Guerrero MD [address] [place] [address] [facility] [place] [address] [place] [address] Referral ID Status Reason Start Date Expiration Date Visits Re quested Visits Authorized [id number] Closed 02/13/2016 02/12/2017 1 1 Encounter Details Date Type Department Care Team (Late st Contact Info) Description 04/03/2016 2:30 PM EST Office Visit Obstetrics [place] [address] Jamal Olson MD Cyst of left Bartholin's gland duct; Cyst of right Bartholin's gland Social History Tobacco Use Types Packs/Day Years Used Date Smoking Tobacco: Some Days Cigarettes Smokeless Tobacco: Never Sex and Gender Information Value Date Recorded Sex Assigned at Not on file Gender Identity Not on file Sexual Orientation Not on file documented as of this encounter Last Filed Vital Signs Vital Sign Reading Time Taken Comments Blood Pressure 111/56 04/03/2016 2:02 PM EST Pulse 62 04/03/2016 2:02 PM EST Temperature - - Respiratory Rate 16 04/03/2016 2:02 PM EST Oxygen Saturation 100% 04/03/2016 2:02 PM EST Inhaled Oxygen Concentration - - Weight 84.7 kg (186 lb 12.8 oz) 04/03/2016 2:02 PM EST Height 165.1 cm (5' 5) 04/03/2016 2:02 PM EST Body Mass Index 31.09 04/03/2016 2:02 PM EST documented in this encounter Patient Instructions * Patient Instructions* Jamal Olson MD - 04/03/2016 2:38 PM EST Images from the original note were not included. [facility] Bartholin Cyst Surgery: Before Your Surgery What is Bartholin cyst surgery? Bartholin cysts are fluid-filled sacs in your Bartholin gland. These glands are in your lower vulva, the area around your vagina. They can become infected and form an abscess, or sac of pus. Bartholin cysts can be treated in three ways: ?? Word catheter. The doctor makes a small cut in the cyst. This cut is called an incision. Then the doctor puts a small rubber tube, called a catheter, in the incision. The catheter keeps the area open so fluid can drain out of it. This treatment can be done in the doctor's office. The doctor willnumb your vulva so you feel less pain. Your doctor will take out the catheter after several weeks. ?? Marsupialization. The doctor makes a small incision in the cyst. Then he or she puts a few stitches on either side of the incision. Fluid from your cyst drains out of this small, permanent opening. This treatment can be done in the doctor's office. The doctor will numb your vulva so you feel less pain. ?? Excision. The doctor cuts out the entire cyst and sometimes the gland and duct. This is not doneoften. This is a more complex surgery. The doctor will numb your vulva so you feel less pain. Most women go home 1 to 6 hours after surgery. You can expect to feel better each day, but you willprobably need 2 to 4 weeks to recover. Your doctor will advise you to avoid having sex for at least2 weeks, or until your vulva is completely healed. After one of these surgeries, your cyst and any pain in your vulva should go away. Some women need more than one of these surgeries to permanently get rid of a cyst. Follow-up care is a vaca part of your treatment and safety. Be sure to make and go to all appointments, and call your doctor if you are having problems. It's also a good idea to know your test resultsand keep a list of the medicines you take. What happens before surgery? Surgery can be stressful. This information will help you understand what you can expect. And it will help you safely prepare for surgery. Preparing for surgery ?? Understand exactly what surgery is planned, along with the risks, benefits, and other options. ?? Tell your doctors ALL the medicines, vitamins, supplements, and herbal remedies you take. Some of these can increase the risk of bleeding or interact with anesthesia. ?? If you take blood thinners, such as warfarin (Coumadin), clopidogrel (Plavix), or aspirin, be sure to talk to your doctor. He or she will tell you if you should stop taking these medicines before your surgery. Make sure that you understand exactly what your doctor wants you to do. ?? Your doctor will tell you which medicines to take or stop before your surgery. You may need to stop taking certain medicines a week or more before surgery. So talk to your doctor as soon as you can. ?? If you have an advance directive, let your doctor know. It may include a living will and a durable power of brick and tile making machine operator for health care. Bring a copy to the hospital. If you don't have one, you may want to prepare one. It lets your doctor and loved ones know your health care wishes. Doctors advise that everyone prepare these papers before any type of surgery or procedure. What happens on the day of surgery? ?? Follow the instructions exactly about when to stop eating and drinking. If you don't, your surgery may be canceled. If your doctor told you to take your medicines on the day of surgery, take them with only a sip of water. ?? Take a bath or shower before you come in for your surgery. Do not apply lotions, perfumes, deodorants, or nail czech. ?? Do not shave the surgical site yourself. ?? Take off all jewelry and piercings. And take out contact lenses, if you wear them. At the hospital or surgery center ?? Bring a picture ID. ?? The area for surgery is often marked to make sure there are no errors. ?? You will be kept comfortable and safe by your anesthesia provider. The anesthesia may make you sleep. Or it may just numb the area being worked on. ?? You will probably go home after 3 to 6 hours in the recovery room. Going home ?? Be sure you have someone to drive you home. Anesthesia and pain medicine make it unsafe for you to drive. ?? You will be given more specific instructions about recovering from your surgery. They will coverthings like diet, wound care, follow-up care, driving, and getting back to your normal routine. When should you call your doctor? ?? You have questions or concerns. ?? You don't understand how to prepare for your surgery. ?? You become ill before the surgery (such as fever, flu, or a cold). ?? You need to reschedule or have changed your mind about having the surgery. Where can you learn more? Visit our [employer] information library at [email or web address] You can also view health information on [employer], your personal patient account. Log in or sign up today. Enter A859 in the search box to learn more about Bartholin Cyst Surgery: Before Your Surgery. ?? [id number] [employer]. Care instructions adapted under license by [facility]. This care instruction is for use with your licensed healthcare professional. If you have questions about a medical condition or this instruction, always ask your healthcare professional. [employer] disclaims any warranty or liability for your use of this information. Content Version: 11.0.498019; Current as of: May 04, 2015 [facility] Bartholin Gland Cyst: Care Instructions Your Care Instructions The Bartholin glands are in a woman's vulva. This is the area around the vagina. The glands are normally about the size of a pea. They provide fluid to the vulvar area through a small opening. If theopening is blocked, the gland swells with fluid and forms a cyst. You can have a cyst for years with no symptoms. But if a cyst gets infected by bacteria, it can grow and become red and painful. Thisis called an abscess. Opening and draining the cyst usually cures the infection. You may have had a small tube (catheter) placed into the cyst or had minor surgery to let the cyst drain. The tube will usually be left in for at least 4 weeks. Your doctor may do a lab test to find out what kind of bacteria caused the infection. You may get antibiotics to kill the bacteria. You may have some drainage from the cyst for a few weeks. The gland should return to normal after the infection clears up. Follow-up care is a vaca part of your treatment and safety. Be sure to make and go to all appointments, and call your doctor if you are having problems. It's also a good idea to know your test resultsand keep a list of the medicines you take. How can you care for yourself at home? ?? If your doctor prescribed antibiotics, take them as directed. Do not stop taking them just because you feel better. You need to take the full course of antibiotics. ?? Sit in a few inches of warm water (sitz bath) 3 times a day and after bowel movements. The warm water helps the area heal and eases discomfort. ?? Take an wbfh-wvz-nfsuchk pain medicine such as acetaminophen (Tylenol), ibuprofen (Advil, Motrin), or naproxen (Aleve). Read and follow all instructions on the label. ?? Do not take two or more pain medicines at the same time unless the doctor told you to. Many painmedicines have acetaminophen, which is Tylenol. Too much acetaminophen (Tylenol) can be harmful. ?? Wear panty liners or pads if you have discharge from the draining cyst. ?? If you are sexually active, avoid sex until: ?? You have finished the antibiotics. ?? The area has healed. ?? If you had a catheter placed in the cyst to help it drain, follow your doctor's instructions foractivities until the tube comes out. When should you call for help? Call your doctor now or seek immediate medical care if: ?? Your pain gets worse. ?? You have a new or higher fever. ?? Your swelling increases. ?? The red area around the cyst gets bigger. Watch closely for changes in your health, and be sure to contact your doctor if: ?? The catheter falls out. ?? Your symptoms do not improve in 2 days. Where can you learn more? Visit our health information library at [email or web address] You can also view health information on [employer], your personal patient account. Log in or sign up today. Enter H276 in the search box to learn more about Bartholin Gland Cyst: Care Instructions. ?? [id number] [employer]. Care instructions adapted under license by [facility]. This care instruction is for use with your licensed healthcare professional. If you have questions about a medical condition or this instruction, always ask your healthcare professional. [employer] disclaims any warranty or liability for your use of this information. Content Version: 11.0.973864; Current as of: May 04, 2015 documented in this encounter Progress Notes * Jamal Olson MD - 04/03/2016 2:30 PM EST Gynecology Clinic Note Chief Complaint Patient presents with ??? Establish Care ??? Cyst bartholin abscess-recurrent Terri Blanco is a 30 y.o. female . Terri is referred by Dr. Larsen for discussion oftreatment of her recurrent left Bartholin cyst. The patient states that she has had her left Bartholin gland or cyst and then abscess at least 5 times, and that this has been drained with Word catheter placement each time. It continues to recur, most recently in 01/2016. Every time, it has been on the left, and she is wondering about excision of the gland for definitive therapy. She does feel that the left Bartholin gland is enlarged and <___> at this point, with some tenderness, but no induration or acute pain. She has never noted any symptoms on the other side. Of note, the patient states that she has been having unprotected intercourse this month, and is feeling symptoms suspicious for . Her cycle would be due next week, and she will do a test if late. COMMISSIONS COORDINATOR History: Patient's last menstrual period was 03/10/2016. Menstrual History 04/03/2016 Period Cycle (Days) 30 Period Pattern Regular Menstrual Flow Moderate Pap history: Normal last fall Review of Systems - History obtained from the patient General ROS: negative for - fever Endocrine ROS: positive for - breast changes Respiratory ROS: no cough, shortness of breath, or wheezing Cardiovascular ROS: no chest pain or dyspnea on exertion Gastrointestinal ROS: no abdominal pain, change in bowel habits, or black or bloody stools Genito-Urinary ROS: no dysuria, trouble voiding, or hematuria Heme: negative for easy bruising, bleeding gums All other systems reviewed and negative OB History Para Term AB TAB SAB Ectopic Multiple Living 3 1 1 2 1 Patient Active Problem List Diagnosis Code ??? Cyst of left Bartholin's gland duct N75.0 Past Medical History Diagnosis Date ??? Abscess of Bartholin's gland ??? Anxiety ??? History of chlamydia Past Surgical History Procedure Laterality Date ??? Knee arthroscopy Right ??? Cyst incision and drainage Left 2010 AND 2013 BARTHOLIN FAMILY HISTORY family history includes Colorectal Cancer in her maternal uncle; Heart Disease in her maternal grandfather. 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 Smoking status: Current Some Day Smoker Types: Cigarettes ??? Smokeless tobacco: Never Used ??? Alcohol use Not on file ??? Drug use: No ??? Sexual activity: Yes Partners: Male reports that she has been smoking Cigarettes. She has never used smokeless tobacco. She reports that she does not use illicit drugs. No Known Allergies Outpatient Prescriptions Marked as Taking for the 04/03/16 encounter (Office Visit) with Jamal Olson MD Medication Sig Dispense Refill ??? venlafaxine (EFFEXOR) 75 mg Tablet Take 175 mg by mouth daily. Wt Readings from Last 3 Encounters: 04/03/16 84.7 kg (186 lb 12.8 oz) Body mass index is 31.09 kg/(m^2). Vitals: 04/03/16 1402 BP: 111/56 Pulse: 62 Resp: 16 Physical Exam: On exam she appeared her stated age and in no acute distress. Vital signs as documented. Neurological: She is alert and oriented to person, place, and time. Psychiatric: She has a normal mood and affect. Her behavior is normal. Thought content normal. Pelvic Exam: External female genitalia: normal hair distribution and architecture, Left Bartholin's gland cyst 2cm, tender, decreased mobility with overlying scar Right Bartholin's gland cyst 1cm, non-tender, mobile Normal bladder, urethral meatus, urethra Vagina: well estrogenized, no abnormal discharge or blood in the vaginal vault Cervix: without lesions or CMT. Uterus: 6 weeks size and anteverted. Adnexa: Small and nontender, without masses Anus and perineum: No lesions Assessment and Plan: 30 y.o. female . 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 She is interested in more definitive surgical management to prevent recurrences. We discussed options for this including marsupialization in the operating room with a larger incision and suturing open the duct. We discussed the risks, benefits, and possibility of recurrence should we take this approach. We also discussed excision of the duct and gland, with this being a much more morbid procedure with greater blood loss and chance for damage to nerves and other structures of the perineum. She is uncertain which of these procedures she would like to proceed with and is sent home with some information. Did recommend that she have surgical marsupialization of the left and right Bartholin glands due to recurrent cyst on the left and new occurrence of a cyst on the right. She will call us to schedule a procedure. Jamal Olson MD, PhD, [place] [address] Dept: [phone] 6:58 PM documented in this encounter Plan of Treatment Not on file documented as of this encounter Visit Diagnoses Diagnosis Cyst of left Bartholin's gland duct Cyst of right Bartholin's gland documented in this encounter Care Teams Sprayer Leather Relationship Specialty Start Date End Date Susie Chavez APRN PCP - General Family Medicine 04/03/16 documented as of this encounter
--- OUTSIDE RECORDS SUMMARY | 2024-03-05 17:13 | XMS_ITS | Clinical Summary ---
Author Organization [facility] Address [facility] [place] [address] Care Team Providers Care Hims Manager Name Role Phone Susie Chavez APRN Primary Care Provider [phone] Allergies No known active allergies Medications Medication Sig Dispensed Refills Start Date End Date Status LORazepam (ATIVAN) 0.5 mg Tablet Take 0.5 mg by mouth every 6 hours as needed for Anxiety. Active oxyCODONE (ROXICODONE) 5 mg Tablet Take 1 tablet by mouth every 4 hours as needed for Pain. 10 tablet 05/28/2016 Active Additional Information Patient not taking.Reported on 06/03/2016 ibuprofen (ADVIL;MOTRIN) 600 mg Tablet Take 1 tablet by mouth every 6 hours as needed for Pain. 60 tablet 05/28/2016 Active Active Problems Problem Noted Date Diagnosed Date Cyst of left Bartholin's gland duct 04/03/2016 Overview (04/03/2016): Lanced x 5 for abscess Family History Medical History Relation Comments Heart Disease Maternal Grandfather Colorectal Cancer Maternal Uncle Relation Status Comments Maternal Grandfather Maternal Uncle Social History Tobacco Use Types Packs/Day Years Used Date Smoking Tobacco: Former Cigarettes Q uit: 04/10/2016 Smokeless Tobacco: Never Alcohol Use Standard Drinks/Week Comments Yes 0 (1 standard drink = 0.6 oz pur e alcohol) once every 2 weeks Sex and Gender Information Value Date Recorded Sex Assigned at Not on file Gender Identity Not on file Sexual Orientation Not on file Last Filed Vital Signs Vital Sign Reading Time Taken Comments Blood Pressure 105/60 06/03/2016 11:27 AM EDT Pulse 68 06/03/2016 11:27 AM EDT Temperature 36.9 ??C (98.4 ??F) 06/03/2016 1 1:27 AM EDT Respiratory Rate 18 06/03/2016 11:2 7 AM EDT Oxygen Saturation 99% 06/03/2016 11: 27 AM EDT Inhaled Oxygen Concentration - - Weight 86.6 kg (190 lb 14.4 oz) 017 11:27 AM EDT Height 165.1 cm (5' 5) 05/28/2016 8:28 AM EDT Body Mass Index 31.77 05/28/2016 8:28 AM EDT Plan of Treatment Health Maintenance Due Date Last Done Comments HIV screen 2005 Hepatitis C Screening 2005 Hepatitis B vaccine (0-59 yrs) (1) 2006 Tetanus/Diphtheria/Pertussis Vaccines (1 - Tdap) 05/07 HPV test 2017 PAP Smear 2017 Covid-19 Vaccine (1 - 2023- season) 2023 Influenza (Flu) vaccine (1 o f 1 - Influenza standard series) 11/09/2023 Advance Directives * Full Code (Latest Code Status on File) Date Activated Date Inactivated Comments 05/28/2016 8:55 AM 05/28/2016 4:03 PM Question Answer Comments Does patient have capacity to make decision: Yes Care Teams Hims Manager Relationship Specialty Start Date End Date Susie Chavez APRN PCP - General Family Medicine 04/03/16
--- OUTSIDE RECORDS SUMMARY | 2024-03-05 17:13 | XMS_ITS | Encounter Summary ---
Author Organization [facility] [place] [address] Care Team Providers Care Operator Automated Process Name Role Phone Susie Chavez APRN Primary Care Provider [phone] Reason for Visit * Reason Comments Follow-up Encounter Details Date Type Department Care Team (Late st Contact Info) Description 04/24/2016 8:30 AM EST Office Visit Obstetrics [place] [id number] Jamal Olson MD Cyst of left Bartholin's gland duct Social History Tobacco Use Types Packs/Day Years Used Date Smoking Tobacco: Former Cigarettes Q uit: 04/10/2016 Smokeless Tobacco: Never Sex and Gender Information Value Date Recorded Sex Assigned at Not on file Gender Identity Not on file Sexual Orientation Not on file documented as of this encounter Last Filed Vital Signs Vital Sign Reading Time Taken Comments Blood Pressure 108/56 04/24/2016 8:29 AM EST Pulse 62 04/24/2016 8:29 AM EST Temperature 36.5 ??C (97.7 ??F) 04/24/2016 8:29 AM ES T Respiratory Rate 18 04/24/2016 8:29 AM EST Oxygen Saturation 98% 04/24/2016 8:29 AM EST Inhaled Oxygen Concentration - - Weight 85 kg (187 lb 4.8 oz) 04/24/2016 8:29 AM EST Height 165.1 cm (5' 5) 04/24/2016 8:29 AM EST Body Mass Index 31.17 04/24/2016 8:29 AM EST documented in this encounter Progress Notes * Jamal Olson MD - 04/24/2016 8:30 AM EST Chief Complaint Patient presents with ??? Follow-up Terri Blanco is a 30 y.o. female here in preoperative consultation for treatment of her left Bartholin gland cyst that has been infected and recurred five times. She has considered surgical options of marsupializaiton in the OR vs. Excision and she has decided to proceed with marsupialization. Patient's last menstrual period was 04/16/2016. 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 Smoking status: Former Smoker Types: Cigarettes Quit date: 04/10/2016 ??? Smokeless tobacco: Never Used ??? Alcohol use Not on file ??? Drug use: No ??? Sexual activity: Yes Partners: Male reports that she quit smoking about 2 weeks ago. Her smoking use included Cigarettes. She has neverused smokeless tobacco. She reports that she does not use illicit drugs. No Known Allergies No outpatient prescriptions have been marked as taking for the 04/24/16 encounter (Office Visit) with Jamal Olson MD. Wt Readings from Last 3 Encounters: 04/24/16 85 kg (187 lb 4.8 oz) 04/03/16 84.7 kg (186 lb 12.8 oz) Body mass index is 31.17 kg/(m^2). Vitals: 04/24/16 0829 BP: 108/56 Pulse: 62 Resp: 18 Temp: 36.5 ??C (97.7 ??F) Physical Exam: On exam she appeared her stated age and in no acute distress. Skin:non-diaphoretic, without rash/lesions Neurological: She is alert and oriented to person, place, and time. Psychiatric: Affect is appropriate. HEENT: Normocephalic. Anicteric, normal scleral and conjunctivae. Neck is supple without thyromegaly or lymphadenopathy Lungs were clear to auscultation bilaterally. Heart regular rate and rhythm without murmurs or gallops. The abdomen was soft, non-tender, and without guarding or rebound. No masses or organomegaly. Surgical scars: Examination of the extremities revealed no cyanosis, clubbing or edema. Pelvic Exam: Deferred to OR. See last visit note Lab/ Radiology Review Assessment and Plan: 30 y.o. female in preoperative consultation for Bartholin gland marsupialization. She has asmall cyst of the right side that has never bothered her and she declines intervention on that sideat this time. We will proceed with marsupialization of the LEFT Bartholin gland cyst. We discussed expectations around the procedure, operative time, pain control, work restrictions. We discussed the risks, benefits, and alternatives of the procedure and she gave informed consent. All of her questions were answered. documented in this encounter Plan of Treatment Not on file documented as of this encounter Procedures Procedure Name Priority Date/Time Associated Diagnosis Comments MARSUPIALIZATION,BARTHO STAN'S GLAND CYST Routine 04/24/2016 3:23 PM EST documented in this encounter Visit Diagnoses Diagnosis Cyst of left Bartholin's gland duct documented in this encounter Care Teams Operator Automated Process Relationship Specialty Start Date End Date Susie Chavez APRN PCP - General Family Medicine 04/03/16 documented as of this encounter
--- OUTSIDE RECORDS SUMMARY | 2024-03-05 17:13 | XMS_ITS | Encounter Summary ---
Author Organization [facility] Address [address] [place] [address] Care Team Providers Care Court Bailiff Name Role Phone Unknown, Provider Primary Care Provider Unava ilable Encounter Details Date Type Department Care Team ([facility] st Contact Info) Description 12/26/2014 Results Only [facility]- [facility]ISM [phone] Susie Borjas, AGRONOMY TEACHER [address] [place] [phone] Social History Tobacco Use Types Packs/Day Years [...] Diagnosis Comments PAP TEST- RESULT ONLY Routine 12/26/2014 0:00 EDT documented in this encounter Results * PAP TEST- RESULT ONLY (12/26/2014 0:00 EDT) Pathology Report: CYTOPATHOLOGY REPORT Reports generated via electronic interface contain original data; however they are lacking the format of the original report. Caution should be taken when reading/interpreti ng unformatted reports. Name: ? MARILEE GUDINO ? Accession #: ? [id number] : ? 1985 (Age: 29) ??F ?Collect Date: ? 12/26/2014 Location: ? [facility] ? Receive Date: ? 12/27/2014 Provider: ?SUSIE BORJAS AGRONOMY TEACHER Copy to: ? Specimen/Source: ?Pap Test, Endocervix, ThinPrep Imaging System with manual evaluation Last Menstrual Period: ? 12/17/14 ? SPECIMEN ADEQUACY ? Satisfactory for Evaluation - transformation zone component present GENERAL CATEGORIZATION ? Negative for Intraepithelial Lesion or Malignancy INTERPRETATION ? Reactive cellular changes associated with inflammation present (includes repair). Shift in susan present suggestive of bacterial vaginosis. ? Document reviewed and electronically signed by: ? ERENDIRA PEREZ MD ? Report Date: ??01/04/2015 16:04 End of Report [facility] 12/26/2014 12/27/2014 us Susie Borjas NP PATHOLOGY ORDERABLES Final Resul t [facility] [address] [place] [address] documented in this encounter Visit Diagnoses Not on filedocumented in this encounter Care Teams Court Bailiff Relationship Specialty Start Date End Date Unknown, Provider, PCP - General 05/01/10 documented as of this encounter
--- OUTSIDE RECORDS SUMMARY | 2024-03-05 17:13 | XMS_ITS | Encounter Summary ---
Author Organization [facility] [place] [address] Care Team Providers Care Bench Assembler Operator Name Role Phone Susie Chavez SOPHIA Primary Care Provider [phone] Encounter Details Date Type Department Care Team (Latest Contact Info) Description 05/28/2016 8:10 AM EDT - 05/28/2016 1:57 PM EDT Hospital Encounter [place] [phone] Jamal Fischer MD Cyst of left Bartholin's gland duct Discharge Disposition: Home Social History Tobacco Use [...] Sign Reading Time Taken Comments Blood Pressure 94/69 05/28/2016 1:15 PM EDT Pulse 64 05/28/2016 8:28 AM EDT Temperature 36.3 ??C (97.3 ??F) 05/28/2016 8:28 AM ED T Respiratory Rate 16 05/28/2016 1:00 PM EDT Oxygen Saturation 98% 05/28/2016 1:15 PM EDT Inhaled Oxygen Concentration - - Weight [...] Appointment: 06/03/2016 11:45 AM Nati Murphy MD Le Overhead Cleaner 5l 06/19/2016 11:45 AM (Arrive by 11:30 AM) Jamal Fischer MD Obstetrics and Gynecology [facility] Activity Restrictions and Hygeine There is [...] Call It is normal to have a minfso-az-avrzpwkb amount of discharge after vulvar surgery. This can range in color from yellow to blood tinged. What is NOT normal is heaving bleeding, or discharge with foulodor, especially if it is associated with increasing pain, redness, or fever. These symptoms shouldbe reported immediately. Contact Information Dr. Jamal Fischer Gynecology [place] [phone] documented in this encounter Medications at Time [...] escorted out of department via wheelchair with [facility] voluneer. documented in this encounter H&P Notes [...] H&P 04/24/2016 31 y.o. Female presents to [facility] with a 30 y.o. 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 Smoking status: [...] Nati Murphy - 05/28/2016 1:57 PM EDT [facility] Operative Note Patient Name: Terri Blanco : [id number] MR#: [id number] Case Date: 05/28/2016 Surgeon: Surgeon(s) and Role: [...] Operative Note Patient Name: Terri Blanco : [id number] MR#: [id number] Case Date: 05/28/2016 Surgeon: Surgeon(s) and Role: [...] Fischer MD POINT OF CARE TEST O FELICIACLARISSA documented in this encounter Visit Diagnoses Diagnosis Cyst of left Bartholin's gland duct documented in this encounter Administered Medications Inactive Administered Medications - up to 3 most recent administrations Medication Order MAR Action Action Date Dose Rate Site lactated ringers infusion 1,000 mL 1,000 mL, [...] Routine documented in this encounter Care Teams Bench Assembler Operator Relationship Specialty Start Date End Date Susie Chavez, SOPHIA PCP - General Family Medicine 04/03/16 documented as of this encounter
--- OUTSIDE RECORDS SUMMARY | 2024-03-05 17:13 | XMS_ITS | Encounter Summary ---
Author Organization [facility] Address [address] [place] [address] Care Team Providers Care Rehab Manager Name Role Phone Unknown, Provider Primary Care Provider Unava ilable Encounter Details Date Type Department Care Team (Late st Contact Info) Description 06/22/2013 Results Only [facility] Services - [facility] ([facility]) [address] [place] [address] [phone] Barby Flood, JUANITA Social History Tobacco Use [...] Diagnosis Comments PAP TEST- RESULT ONLY Routine 06/22/2013 0:00 EDT documented in this encounter Results * PAP TEST- RESULT ONLY (06/22/2013 0:00 EDT) Pathology Report: CYTOPATHOLOGY REPORT Reports generated via electronic interface contain original data; however they are lacking the format of the original report. Caution should be taken when reading/interpreti ng unformatted reports. Name: ? MARILEE GUDINO ? Accession #: ? [id number] : ? 1985 (Age: 28) ??F ?Collect Date: ? 06/22/2013 Location: ? [facility] ? Receive Date: ? 06/24/2013 Provider: ?BARBY FLOOD SUCTION ROLLER Copy to: ? Specimen/Source: ?Pap Test, Cervix/Endocervix, ThinPrep Imaging System with manual evaluation Last Menstrual Period: ? 05/31/13 Previous Gynecologic Pathology: ? EDMOND I HPV: + Other: ? Additional clinical information: Pap negative since ? SPECIMEN ADEQUACY ? Satisfactory for Evaluation - transformation zone component present GENERAL CATEGORIZATION ? Negative for Intraepithelial Lesion or Malignancy INTERPRETATION ? Reactive cellular changes associated with inflammation present (includes repair). ? Document reviewed and electronically signed by: ? POONAM HARRIS MD [facility] ? Report Date: ??07/02/2013 17:27 End of Report [facility] 06/22/2013 06/24/2013 us Barby Flood NP PATHOLOGY ORDERABLES Final Re sult [facility] [address] [place] [address] documented in this encounter Visit Diagnoses Not on filedocumented in this encounter Care Teams Rehab Manager Relationship Specialty Start Date End Date Unknown, Provider, PCP - General 05/01/10 documented as of this encounter
--- OUTSIDE RECORDS SUMMARY | 2024-03-05 17:13 | XMS_ITS | Encounter Summary ---
Author Organization [facility] Address [facility] [address] Care Team Providers Care Director Style Name Role Phone Susie Chavez APRN Primary Care Provider [phone] Reason for Visit * Reason Comments Post Op Encounter Details Date Type Department Care Team (Late st Contact Info) Description 06/03/2016 11:45 AM EDT Office Visit Obstetrics [place] [address] Nati Murphy MD [facility] DR OBSTETRICS [place] [address] Post-operative state; Change or removal of drains Social History Tobacco Use Types Packs/Day Years [...] 14.4 oz) 017 11:27 AM EDT Height - - Body Mass Index 31.77 05/28/2016 8:28 AM EDT documented in this encounter Progress Notes * Nati Murphy - 06/03/2016 11:45 AM EDT Gynecology Office Visit Reason: Post-op Incision Check/ drain removal S: Terri Blanco is a 30 y.o. female who is POD#6 s/p marsupialization of Bartholin'sgland cyst on 05/28/2016. Uncomplicated surgery. Operative findings: 3 cm left-sided bartholin cyst with overlying scar tissue. 1/4 inch selvin drain sutured into in Bartholin cyst cavity. Today, she reports she is doing well. Doing twice daily sitz baths. Has not had intercourse. O: Vitals: 06/03/16 1127 BP: 105/60 Pulse: 68 Resp: 18 Temp: 36.9 ??C (98.4 ??F) Physical exam - Gen: well appearing, NAD Pelvic: well healing site, mildly tender, no fluctuance or drainage, selvin drain sutures cut A: Terri Blanco is a 30 y.o. female who is POD#6 s/p marsupialization of Bartholin'sgland cyst healing well. Drain removed P: Continue sitz baths. May resume intercourse in 2 more weeks. May resume work and regular activity. Return 06/19/2016 for post-op visit. Examined with Dr. Wesley MURPHY MD 06/03/2016 * Gonzalo Fischer MD - 06/03/2016 11:45 AM EDT I saw and evaluated Terri Blanco. I agree with the findings and the plan of care as documented in the resident's note. GONZALO FISCHER MD documented in this encounter Plan of Treatment Not on file documented as of this encounter Visit Diagnoses Diagnosis Post-operative state Other postprocedural status Change or removal of drains Other specified aftercare following surgery documented in this encounter Care Teams Director Style Relationship Specialty Start Date End Date Susie Chavez APRN PCP - General Family Medicine 04/03/16 documented as of this encounter
--- OUTSIDE RECORDS SUMMARY | 2024-03-05 17:13 | XMS_ITS | Encounter Summary ---
Author Organization [facility] Address [address] [place] [address] Care Team Providers Care Prepared Foods Supervisor Name Role Phone Unavailable Primary Care Provider Unavailabl e Encounter Details Date Type Department Care Team (Late st Contact Info) Description 04/24/2010 Results Only [facility] [phone] Danna Whitney MD [address] [place] [address] Social History Tobacco Use Types Packs/Day Years [...] Procedure Name Priority Date/Time Associated Diagnosis Comments CYTOPATHOLOGY Routine 04/24/2010 0:00 EST documented in this encounter Results * CYTOPATHOLOGY (04/24/2010 0:00 EST) Pathology Report: CYTOPATHOLOGY REPORT ? Reports generated via electronic interface contain original data; ? however they are lacking the format of the original report. ? Caution should be taken when reading/interpreti ng unformatted reports. ? Name: ? JASMINE, MARILEE ? Accession #: ? [id number] ? : ? 1985 (Age: 24) ??F ?Collect Date: ? 04/24/2010 ? Location: ? [facility] ? Receive Date: ? 04/25/2010 ? Provider: DANNA WHITNEY MD ? Copy to: ? Final Report ? SPECIMEN ADEQUACY ? Satisfactory for Evaluation ? - transformation zone component present ? GENERAL CATEGORIZATION ? Epithelial Cell Abnormality ? INTERPRETATION ? Squamous Cell Abnormality - Atypical squamous cells, undetermined ? significance (ASC-US). ? EDUCATIONAL NOTES/RECOMMENDATI ONS ? [facility] recommends following the 2006 Consensus Guidelines for the Management of Women with Abnormal Cervical Cancer Screening Tests (JLGTD, ? 2007;11(4):201-222 ). ??Consensus guidelines are available online at ? www.ASCCP.org. ? Hormonal/Contracep tive status: Intrauterine device: mirena ? Previous Gynecologic Pathology: ASC-US: 2005 ? HPV: + ? LSIL: pap ? Other: Additional clinical information: last pap //10 negative, - HPV ? Specimen/Source: ??Pap Test, Cervix/Endocervix, ThinPrep Imaging System with ? manual evaluation ? Document reviewed and electronically signed by: ? ABDELMONEM GARYFLORIDAY MD ? Report ??Date: 04/30/2010 12:36 ? HPV with Pap Test ? Date Ordered: ? 04/30/2010 ? Status: ?? Signed Out ?Date Complete: ? 05/03/2010 ? By: ??System Interface ? Date Reported: ? 05/03/2010 ? Interpretation ? RESULT: Negative for HPV types 16, 18, 31, 33, 35, 39, 45, 51, 52, ? 56, 58, 59, and 68. ? Comments ? Document reviewed and electronically signed by: ? System Interface ? Report date: 05/03/2010 ? By the signature above, the attending physician certifies that he/she has ? personally conducted a gross and/or microscopic examination of the described ? specimens and rendered or confirmed the above diagnosis. ? End of Report ? [facility] 04/24/2010 04/25/2010 us Danna Whitney MD PATHOLOGY ORDERABLES Final Resu lt Performing Organization Address City/State/[facility] Co de Phone Number [facility] [address] [place] [address] documented in this encounter Visit Diagnoses Not on filedocumented in this encounter
--- OUTSIDE RECORDS SUMMARY | 2024-03-05 17:13 | XMS_ITS | Referral Summary ---
Author Organization [facility] Address [address] [place] [address] Care Team Providers Care Slasher Hand Name Role Phone Unknown, Provider Primary Care [...] Orientation Not on file Plan of Treatment Not on file Care Teams Slasher Hand Relationship Specialty Start Date End Date Unknown, Provider, PCP - General 05/01/10
--- OUTSIDE RECORDS SUMMARY | 2024-03-05 17:14 | XMS_ITS | Encounter Summary ---
Author Organization [facility] Address [address] [place] [address] Care Team Providers Care Trombone Slide Assembler Name Role Phone Unavailable Primary Care Provider Unavailabl e Encounter Details Date Type Department Care Team (Late st Contact Info) Description 03/20/2009 Orders Only [facility] Laboratory Services - [facility] ([facility]) [address] [place] [address] [phone] Barby Flood, HORSE AND WAGON DRIVER Social History Tobacco Use Types Packs/Day Years [...] Procedure Name Priority Date/Time Associated Diagnosis Comments HPV DETECTION, HIGH RISK TYPES Routine 03/20/2009 10:02 EST CYTOPATHOLOGY Routine 03/20/2009 0:00 EST documented in this encounter Results * HUMAN PAPILLOMA VIRUS DNA TEST (03/20/2009 10:02 EST) Specimen Description Cervix, ThinPrep vial [facility] Result Negative for HPV types 16, 18, 31, 33, 35, 39, 45, 51, 52, 56, 58, 59, and 68. [facility] Report Status Final 03/30/2009 [facility] 03/20/2009 10:0 2 EST 03/24/2009 10:02 EST us Barby M Hooven HORSE AND WAGON DRIVER MICROBIOLOGY - GENERAL ORDERA BLES Final Result [facility] [address] [place] [address] * CYTOPATHOLOGY (03/20/2009 0:00 EST) Pathology Report: CYTOPATHOLOGY REPORT ? Reports generated via electronic interface contain original data; ? however they are lacking the format of the original report. ? Caution should be taken when reading/interpreti ng unformatted reports. ? Name: ? MARILEE FERRARO ? Accession #: ? [id number] ? : ? 1985 (Age: 23) ??F ?Collect Date: ? 03/20/2009 ? Location: ? [facility] ? Receive Date: ? 03/21/2009 ? Provider: ?BARBY M SACHI HORSE AND WAGON DRIVER ? Copy to: ? Specimen/Source: ?Pap Test, Cervix/Endocervix, ThinPrep Imaging System ? with manual evaluation ? Last Menstrual Period: ? 12/21/09 ? Previous Gynecologic Pathology: ? ASC-US: 2005 ? HPV: + 2005 ? LSIL: PHx ? HSIL ? Treatment History: ? Colposcopy: 04/06 ? Cervical biopsy: 04/06 ? Other: ? Additional clinical information: ? Leep, paps nl since ? HPVDX - HPV testing requested regardless of diagnosis on current ThinPrep Pap ?? test. ? SPECIMEN ADEQUACY ? Satisfactory for Evaluation ? - transformation zone component present ? - scant squamous epithelial component secondary to excessive mucus ? GENERAL CATEGORIZATION ? Negative for Intraepithelial Lesion or Malignancy ? INTERPRETATION ? Reactive cellular changes associated with inflammation present (includes ?? repair). ? Document reviewed and electronically signed by: ? Jose Rafael Lyle Capone, MD ? Report Date: ??03/23/2009 12:12 ? End of Report ? [facility] 03/20/2009 03/21/2009 us Barby Flood NP PATHOLOGY ORDERABLES Final Re sult [facility] [address] [place] [address] documented in this encounter Visit Diagnoses Not on filedocumented in this encounter
--- OUTSIDE RECORDS SUMMARY | 2024-03-05 17:14 | XMS_ITS | Encounter Summary ---
Author Organization [facility] Address [address] [place] [address] Care Team Providers Care Bottle And Glass Inspector Name Role Phone Unavailable Primary Care Provider Unavailabl e Encounter Details Date Type Department Care Team (Late st Contact Info) Description 03/11/2008 Before [facility] Converted Visit (Maple) [facility] - Maple conversion [address] [place] [address] [place] [address] Social History Tobacco Use Types Packs/Day Years [...] Priority Date/Time Associated Diagnosis Comments CYTOPATHOLOGY Routine 03/11/2008 0:00 EST documented in this encounter Results * CYTOPATHOLOGY (03/11/2008 0:00 EST) Pathology Report: CYTOPATHOLOGY REPORT ? Reports generated via electronic interface contain original data; ? however they are lacking the format of the original report. ? Caution should be taken when reading/interpreti ng unformatted reports. ? Name: ? JASMINE, MARILEE ? Accession #: ? [id number] ? : ? 1985 (Age: 22) ??F ?Collect Date: ? 03/11/2008 ? Location: ? [facility] ? Receive Date: ? 03/15/2008 ? Provider: ?ZAINA LIU CNM ? Copy to: ? Specimen/Source: ?Pap Test, Cervix/Endocervix, ThinPrep Imaging System ? with manual evaluation ? Last Menstrual Period: ? 5/23/08 ? Menstrual/Pregnanc y Status: ? Previous Gynecologic Pathology: ? EDMOND I: 5/06 ? Yes: 12/06 Pap neg ? Treatment History: ? Cervical biopsy: 5/06 ? SPECIMEN ADEQUACY ? Satisfactory for Evaluation ? - transformation zone component present ? GENERAL CATEGORIZATION ? Negative for Intraepithelial Lesion or Malignancy ? INTERPRETATION ? Shift in susan present suggestive of bacterial vaginosis. ? Document reviewed and electronically signed by: ? Tawnya [place], [place](ASCP) ? Report Date: ??03/16/2008 08:47 ? End of Report ? [facility] 03/11/2008 03/15/2008 us Zaina Liu CNM PATHOLOGY ORDERABLES Final Res ult [facility] [address] [place] [address] documented in this encounter Visit Diagnoses Not on filedocumented in this encounter
--- OUTSIDE RECORDS SUMMARY | 2024-03-05 17:14 | XMS_ITS | Encounter Summary ---
Author Organization [facility] Address [address] [place] [address] Care Team Providers Care Driver/Guide Name Role Phone Unavailable Primary Care Provider Unavailabl e Encounter Details Date Type Department Care Team (Late st Contact Info) Description 07/24/2005 Results Only [facility] - Maple conversion [address] [place] [address] Kym Avilez MD [address] [place] [address] [place] [address] Social History Tobacco Use Types Packs/Day Years [...] Date/Time Associated Diagnosis Comments SURGICAL PATHOLOGY Routine 07/24/2005 0:00 EDT documented in this encounter Results * SURGICAL PATHOLOGY (07/24/2005 0:00 EDT) Pathology Report: SURGICAL PATHOLOGY REPORT Reports generated via electronic interface contain original data; however they are lacking the format of the original report. Caution should be taken when reading/interpreti ng unformatted reports. Name: ? MARILEE FERRARO ? Accession #: ? [id number] ? : ? 1985 (Age: 20) ??F ? Collect Date: ? 07/24/2005 ? Location: ? [facility] ? Receive Date: ? 07/25/2005 ? Provider: KYM AVILEZ MD Copy to: ? Final Pathologic Diagnosis: ? Cervix, 12 o'clock, biopsy: - Low grade squamous intraepithelial lesion (EDMOND I). ?? Document reviewed and electronically signed by: FAIZA MUNIZ MD Report ??Date: 07/26/2005 14:21 By the signature above, the attending physician certifies that he/she has personally conducted a gross and/or microscopic examination of the described specimens and rendered or confirmed the above diagnosis. Specimen(s) Received: ? Cxbx @ 12:00 Clinical History: ? ASCUS 10/12; (+) HPV 03/15; colpo 06/13; LMP: 06/29/05 Gross Description: ? Received in formalin labelled [place] and cxbx at 12:00 is an irregular 0.7 x 0.4 x 0.1 cm oakes glistening portion of mucosa submitted in toto in one cassette. (Flako Donahue)/mpl End of Report [facility] 07/24/2005 07/25/2005 9:1 4 EDT us Kym Avilez MD PATHOLOGY ORDERABLES Final Resu lt [facility] [address] [place] [address] documented in this encounter Visit Diagnoses Not on filedocumented in this encounter
--- OUTSIDE RECORDS SUMMARY | 2024-03-05 17:14 | XMS_ITS | Encounter Summary ---
Author Organization [facility] Address [address] [place] [address] Care Team Providers Care Emergency Dept Tech Name Role Phone Unavailable Primary Care Provider Unavailabl e Encounter Details Date Type Department Care Team (Late st Contact Info) Description 02/19/2006 Results Only [facility] - Maple conversion [address] [place] [address] Kym Avilez MD [address] [place] [address] [place] [address] Social History Tobacco Use Types Packs/Day Years [...] Priority Date/Time Associated Diagnosis Comments CYTOPATHOLOGY Routine 02/19/2006 0:00 EST documented in this encounter Results * CYTOPATHOLOGY (02/19/2006 0:00 EST) Pathology Report: CYTOPATHOLOGY REPORT Reports generated via electronic interface contain original data; however they are lacking the format of the original report. Caution should be taken when reading/interpreti ng unformatted reports. Name: ? MARILEE FERRARO ? Accession #: ? [id number] : ? 1985 (Age: 20) ??F ?Collect Date: ? 02/19/2006 Location: ? [facility] ? Receive Date: ? 02/19/2006 Provider: ?KYM AVILEZ MD Copy to: ? Specimen/Source: ?ThinPrep Pap Test, Cervix/Endocervix, processed on UsentricPrep Imaging System, with manual evaluation Last Menstrual Period: ? 02/06/06 Previous Gynecologic Pathology: ? EDMOND I: 07/13 Treatment History: ? Cervical biopsy: EDMOND I 07/13 ? SPECIMEN ADEQUACY ? Satisfactory for Evaluation - transformation zone component present GENERAL CATEGORIZATION ? Negative for Intraepithelial Lesion or Malignancy ? Document reviewed and electronically signed by: ? JUDD Jimenez(ASCP) ? Report Date: ??02/25/2006 13:30 End of Report [facility] 02/19/2006 02/19/2006 us Kym Avilez MD PATHOLOGY ORDERABLES Final Resu lt [facility] [address] [place] [address] documented in this encounter Visit Diagnoses Not on filedocumented in this encounter
[2024-03-11 08:52] LABS: Methylphenidate 1668 ng/mL (Cutoff: 10); Ritalinic Acid 16329 ng/mL (Cutoff: 50)
== END 2024-03-05 17:12 | disposition home or self-care (01) ==
LOC: NCHCN 17:11
PROVIDERS: PCP Nurse Practitioner Family; Visit Provider Physician Assistant
DX: F43.10 Post-traumatic stress disorder, unspecified (principal)
CPT/HCPCS: 80360

== ENCOUNTER 2024-09-17 22:12 | Outpatient (REF) | payer BC, SELFPAY | END 2024-09-17 22:13 | disposition home or self-care (01) | LOC: NCHCN 22:12 | PROVIDERS: Visit Provider Physician Assistant | DX: Z79.899 Other long term (current) drug therapy (principal) | CPT/HCPCS: 80360 ==